=== PATIENT | male | born 1960 | race Caucasian/White ===

== ENCOUNTER → 2018-05-08 16:09 | Outpatient (CLI) | payer OTHER, SELFPAY ==
[2016-08-02 07:46] VITALS: BMI 36.9
== END ==
PROVIDERS: Family Provider Internal Medicine; PCP Internal Medicine; Referring Provider Otolaryngology; Visit Provider Otolaryngology
DX: J32.9 Chronic sinusitis, unspecified (principal)
CPT/HCPCS: 87070; 87077; 87205

== ENCOUNTER → 2018-05-13 17:28 | Outpatient (CLI) | payer OTHER, SELFPAY ==
--- NOTE | 2018-05-13 17:34 | CT_ITS ---
STUDY: CT MAXILLOFACIAL SINUSES REASON FOR EXAM: Male, 58 years old. SINUSITIS. RADIATION DOSAGE (If Supplied By Facility): CTDIvol = ( 33.06 ) mGy, DLP = ( 817.32 ) mGycm TECHNIQUE: The patient was scanned in a multi detector CT scanner. High resolution axial imaging was performed without the administration of intravenous contrast material. Sagittal and coronal images were reconstructed. Individualized dose optimization techniques were used for this CT. COMPARISON: None. FINDINGS: FRONTAL SINUSES: Normal aeration, without mucosal inflammatory disease. ETHMOIDAL SINUSES: Normal aeration, without mucosal inflammatory disease. MAXILLARY SINUSES: The right maxillary sinus is clear there is moderate mucosal thickening of the left maxillary sinus with obstruction of the outflow tract. The uncinate process is not well visualized. SPHENOIDAL SINUSES: There is a small mucous retention cyst There is patency of the right maxillary infundibuli with normal uncinate processes, ethmoid bullae, and hiatus semilunaris. Normal bilateral middle turbinates. Normal bilateral inferior turbinates. Normal midline nasal septum. There is patency of the bilateral nasal airways. The visualized osseous structures are normal. The visualized bilateral orbital contents are normal. CT/Sinus/Facial Bone IMPRESSION: Moderate chronic left maxillary sinusitis. Electronically Signed: Kyle Pfeiffer MD at 16:00 EST Tel , Service support ,
== END ==
PROVIDERS: Family Provider Internal Medicine; PCP Internal Medicine; Referring Provider Otolaryngology Otolaryngology/Facial Plastic Surgery; Visit Provider Otolaryngology Otolaryngology/Facial Plastic Surgery
DX: J32.9 Chronic sinusitis, unspecified (principal)
CPT/HCPCS: 70486

== ENCOUNTER 2018-06-13 07:46 | Day surgery (SDC) | payer OTHER, SELFPAY ==
[2018-06-13] VITALS (8 sets, daily range): BP systolic 126–162; BP diastolic 87–122; PULSE 60–74; RESP 14–20; TEMP 36.5–37.1; O2SAT 92–100; BMI 38.0
--- NOTE | 2018-06-13 09:27 | PCM.HP.STD ---
Problem List (1) Personal history of colonic polyps Status: Acute History of Present Illness Date of Admission: 06/13/18 The patient is a 58 year old M who has a personal history of colon polyps. His most recent colonoscopy however was 8-10 years ago. He denies bright red blood per rectum or melena. No abdominal pain. No unexpected weight loss. He otherwise states that his health is stable. Past Medical History Allergies No Known Allergies Allergy (Verified 06/13/18 08:01) Home Medications: Ambulatory Orders Medication Instructions Recorded Hydrochlorothiazide 25 mg PO DAILY 08/02/16 Cefdinir 300 mg PO BID 06/02/18 Smoking Status: Never smoker Tobacco Use: Non-smoker Review of Systems Constitutional: Denies: Anorexia HEENT: Denies: Difficulty Swallowing Cardiovascular: Denies: Chest Pain, Chest Pressure Respiratory: Denies: Cough Gastrointestinal: Denies: Abdominal Pain, Hematochezia, Melena Endocrine: Denies: Change in Body Habitus VTE Information - Inpt Only VTE Present on Admission: No Patient Problems: Active and Suspected Problems Personal history of colonic polyps (Acute) - Physical Exam General: Alert, Oriented x3, Cooperative, No apparent distress HEENT: Atraumatic Oral: Moist Mucosa Neck: Supple Lungs: Clear to auscultation Cardiovascular: Regular rate, Regular Rhythm Abdomen: Bowel Sounds Present, Soft, Non Tender, Non-Distended Psych/Mental Status: Normal Affect Vital Signs Temp Pulse Resp BP Pulse Ox 98.6 F 60 20 H 158/87 H 98 06/13/18 08:06 06/13/18 08:06 06/13/18 08:06 06/13/18 08:06 06/13/18 08:06 Oxygen Delivery Method Room Air Weight: 280 lb Body Mass Index (BMI) 38.0 Assessment/Plan All Active Problems Personal history of colonic polyps (Acute) I am recommending the patient a colonoscopy with possible biopsy or polypectomy as indicated. He is aware of the technique, benefits, risks and alternatives. No guarantees of success have been offered. He presents via our open access program. Based upon his past history likely want to stay recommending a 5-year follow-up colonoscopy. Yan Page M.D., F.A.C.S.
--- NOTE | 2018-06-13 09:54 | OP.ENDO_ITS ---
Patient Name: Jony Muñiz Procedure Date: 06/13/2018 9:24 AM Date of : 1960 Age: 58 Procedure: Colonoscopy Indications: High risk colon cancer surveillance: Personal history of colonic polyps Providers: Yan Page MD Referring MD: Yan Page MD Medicines: Midazolam 4 mg IV, Meperidine 100 mg IV Patient Profile: Last Colonoscopy: 8-10 years ago. Complications: No immediate complications. Procedure: Pre-Anesthesia Assessment: - Prior to the procedure, a History and Physical was performed, and patient medications and allergies were reviewed. The patient's tolerance of previous anesthesia was also reviewed. The risks and benefits of the procedure and the sedation options and risks were discussed with the patient. All questions were answered, and informed consent was obtained. Prior Anticoagulants: The patient has taken no previous anticoagulant or antiplatelet agents. ASA Grade Assessment: II - A patient with mild systemic disease. After reviewing the risks and benefits, the patient was deemed in satisfactory condition to undergo the procedure. After I obtained informed consent, the scope was passed under direct vision. Throughout the procedure, the patient's blood pressure, pulse, and oxygen saturations were monitored continuously. The adult colonoscope was introduced through the anus and advanced to the cecum, identified by appendiceal orifice and ileocecal valve. The colonoscopy was performed without difficulty. The patient tolerated the procedure well. The quality of the bowel preparation was adequate to identify polyps. The ileocecal valve and the appendiceal orifice were photographed. Moderate Sedation: Moderate (conscious) sedation was personally administered by the endoscopist. The following parameters were monitored: oxygen saturation, heart rate, blood pressure, and response to care. Total physician intraservice time was 15 minutes. Scope In: 9:34:46 AM Scope Withdrawal Time 0 hours 8 minutes 51 seconds Scope Out: 9:49:25 AM Total Procedure Duration Time 0 hours 14 minutes 39 seconds Findings: Hemorrhoids were found on perianal exam. Multiple diverticula were found in the sigmoid colon and descending colon. The exam was otherwise without abnormality. Impression: - Hemorrhoids found on perianal exam. - Diverticulosis in the sigmoid colon and in the descending colon. - The examination was otherwise normal. - No specimens collected. Recommendation: - Discharge patient to home. - Resume previous diet. - Continue present medications. - Repeat colonoscopy in 5 years for surveillance. Procedure Code(s): --- Professional --- 18365, Colonoscopy, flexible; diagnostic, including collection of specimen(s) by brushing or washing, when performed (separate procedure) 12094, 59, Moderate sedation services provided by the same physician or other qualified health manager [employer] performing the diagnostic or therapeutic service that the sedation supports, requiring the presence of an independent trained observer to assist in the monitoring of the patient's level of consciousness and physiological status; initial 15 minutes of intraservice time, patient age 5 years or older Diagnosis Code(s): --- Professional --- Z86.010, Personal history of colonic polyps K64.9, Unspecified hemorrhoids K57.30, Diverticulosis of large intestine without perforation or abscess without bleeding CPT copyright 2017 [employer]. All rights reserved. The codes documented in this report are preliminary and upon granite block paver review may be revised to meet current compliance requirements. Yan Page MD 06/13/2018 9:53:56 AM This report has been signed electronically. Number of Addenda: 0 Note Initiated On: 06/13/2018 9:24 AM
== END 2018-06-13 11:10 | disposition home or self-care (01) ==
LOC: EN 07:47 → AC 07:48
PROVIDERS: Family Provider Family Medicine; PCP Family Medicine; Referring Provider Surgery; Visit Provider Surgery
PROC: 0DJD8ZZ Inspection of Lower Intestinal Tract, Via Natural or Artificial Opening Endoscopic (ICD-10-PCS; CPT 45378; principal; 2018-06-13 08:55)
DX: K57.30 Diverticulosis of large intestine without perforation or abscess without bleeding (principal); K64.9 Unspecified hemorrhoids
CPT/HCPCS: 45380; 99152; 99153; J7120

== ENCOUNTER → 2018-06-26 16:09 | Outpatient (CLI) | payer OTHER, SELFPAY ==
[2018-06-13 08:06] VITALS: BMI 38.0
--- NOTE | 2018-06-26 16:24 | EKG12_ITS ---
Test Reason : PRE-OP Blood Pressure : / mmHG Vent. Rate : 066 BPM Atrial Rate : 066 BPM P-R Int : 150 ms QRS Dur : 088 ms QT Int : 396 ms P-R-T Axes : 049 -04 020 degrees QTc Int : 415 ms Normal sinus rhythm Increased R/S ratio in V1, consider early transition or posterior infarct or normal variant or lead misplacement Abnormal ECG When compared with ECG of 06-AUG-2014 10:24, No significant change was found Confirmed by DALLAS MG, JOSE ([id number]), scientific publications editor NICKY ADAMS ([id number]) on 06/27/2018 8:04:27 AM Referred By: Epi Betancourt Confirmed By:JOSE HAYNES MD
[2018-06-26 17:10] LABS: Hematocrit 42.5 % (40-54); Hemoglobin 14.1 g/dl (13.0-16.5); Mean Corp Hgb Conc 33.2 g/gl (32-36); Mean Corpuscular Hgb 29.9 pg (27.0-32.0); Mean Platelet Vol. 10.3 fl (6.2-12.0); Platelet Count 216 K/mm3 (150-450); RBC Distribution Width CV 13.3 % (11.6-14.6); RBC Distribution Width SD 43.1 fl (35.1-43.9); Red Blood Count 4.72 M/mm3 (4.6-6.2); White Blood Count 6.3 K/mm3 (4.4-11.0)
[2018-06-26 17:19] LABS: Scan Indicated on CBC? Y/N NO
[2018-06-26 17:33] LABS: Anion Gap 10 (5-15); BUN 18 mg/dL (7-18); BUN/Creat Ratio 15.4 RATIO (10-20); Calcium,Total 8.6 mg/dL (8.5-10.1); Chloride 102 mmol/L (98-107); Creatinine, Serum 1.17 mg/dL (0.70-1.30); EST Glomerular Filtration Rate 68 mL/min (>60); Est Glom Filt Rate - Afr Amer 83 mL/min (>60); Glucose 90 mg/dL (74-106); Potassium 3.6 mmol/L (3.5-5.1); Sodium Level 143 mmol/L (136-145)
== END ==
PROVIDERS: Family Provider Family Medicine; PCP Family Medicine; Referring Provider Otolaryngology; Visit Provider Otolaryngology
DX: Z01.818 Encounter for other preprocedural examination (principal)
CPT/HCPCS: 36415; 80048; 85027; 93005

== ENCOUNTER → 2018-06-30 15:17 | Outpatient (CLI) | payer OTHER, SELFPAY ==
[2018-06-13 08:06] VITALS: BMI 38.0
--- NOTE | 2018-06-30 | ETH_PTH ---
PATIENT: LASHELL GONSALES LOC: [facility] U#:[id number] AGE/SX: 65/M ROOM: RE06/30/[address]: Dr. Epi Betancourt MD : 1960 BED: DIS: SPEC #: [id number] RECD: 06/30/18 15:01 STATUS: YUNG AILEEN #: [id number] ARTIE: 06/30/18 00:[address]: Epi Betancourt DEPT: SURGICAL PATHOLOGY RECD BY: Elieser Urena ENTERED: 07/01/18 12:04 SP TYPE: ETH TISS OTHR DR: Dr. Ingrid Lewis MD Tissues: A - Ethmoid sinus, NOS B - Ethmoid sinus, NOS Procedures: Decalcification bone/plaque Surgery Specimen Level IV HEADER OPERATION: Septoplasty, left maxillary antrostomy, bilateral submucosal resection inferior turbinates PRE-OP DIAGNOSIS: Chronic maxillary sinusitis, deviated nasal septum TISSUE SUBMITTED: A - Left/right sinus contents, B - Septum MICROSCOPIC DIAGNOSIS A. Left sinus contents: Fragments of respiratory mucosa with chronic inflammation and bone. B. Septum: Fragments of bone and cartilage, clinically deviated nasal septum. PHAM:south 07/04/18 MICROSCOPIC DESCRIPTION Slides are reviewed. GROSS DESCRIPTION A - Received in fixative is one container labeled with the patient's name and designated left sinus contents. The specimen consists of multiple irregular fragments of soft tissue mixed with fragments of bone that in aggregate measure 3 x 2.5 x 0.3 cm. The entire specimen is submitted in one cassette after decalcification. B - Received in fixative is one container labeled with the patient's name and designated septum. The specimen consists of multiple fragments of cartilage and bone that in aggregate measure 3 x 2.5 x 0.3 cm. The entire specimen is submitted in one cassette after decalcification. / PHAM:south 07/01/18 TC:5 CPT: 15018 x2, 27668 x2
== END ==
PROVIDERS: Family Provider Family Medicine; PCP Family Medicine; Referring Provider Otolaryngology; Visit Provider Otolaryngology
DX: J32.0 Chronic maxillary sinusitis (principal); J34.2 Deviated nasal septum
CPT/HCPCS: 88305; 88311

== ENCOUNTER 2019-01-09 17:05 | Observation (INO) | payer OTHER, SELFPAY ==
[2018-06-13 08:06] VITALS: BMI 38.0
[2019-01-09] VITALS (7 sets, daily range): BP systolic 129–152; BP diastolic 88–106; PULSE 59–79; RESP 14–24; TEMP 36.8–36.9; O2SAT 94–98; BMI 40.2; BMI 39.3
--- NOTE | 2019-01-09 17:12 | EKG12_ITS ---
Test Reason : AM EKG Blood Pressure : / mmHG Vent. Rate : 059 BPM Atrial Rate : 059 BPM P-R Int : 154 ms QRS Dur : 094 ms QT Int : 414 ms P-R-T Axes : 045 -16 003 degrees QTc Int : 409 ms Sinus bradycardia Otherwise normal ECG When compared with ECG of 09-JAN-2019 17:08, MANUAL COMPARISON REQUIRED, DATA IS UNCONFIRMED Confirmed by CLARIBEL WINTERS ([id number]), index editor NICKY ADAMS ([id number]) on 01/20/2019 1:03:18 PM Referred By: Lam Noonan Confirmed By:CLARIBEL WINTERS
--- NOTE | 2019-01-09 17:14 | ED.DCSUM_ITS ---
History of Present Illness Chief Complaint: Chest Pain Informant: Patient Onset: Days Context: Gradual Onset Timing: Intermittent Current Severity: Moderate Maximum Severity: Moderate Narrative: The patient presents to the emergency department with intermittent chest pain and lightheadedness. He states for the past 3 days, he is been having the symptoms. He states if he walks a distance or exerts himself, he will get more tightness and will feel more short of breath. He states that he will get diaphoretic. He denies any history of coronary vascular disease, but does have significant family history. He denies any fevers or chills. He went to his primary care today. Due to his concerning history of exertional chest pain, he was sent in for further evaluation. The patient only takes a low-dose hydrochlorothiazide. He does not smoke. He is never had a stress test. Prior similar symptoms: No Recent Illness/Hospitalization: No Past Medical History - Allergies and Home Meds Allergies/Adverse Reactions: Allergies No Known Allergies Allergy (Verified 01/09/19 17:09) Prior records reviewed: Yes Past Medical History: - - HTN Surgical History: no surgical history Smoking Status: Never smoker - Family History Maternal Family History: Reports: Heart Disease Paternal Family History: Reports: Heart Disease Review of Systems General: Denies: Chills, Fever, Sweats Eyes: Denies: Visual changes - bilaterally, Diplopia ENT: Denies: Rhinorrhea, Sore throat Cardiovascular: Reports: Chest pain. Denies: Palpitations Respiratory: Denies: Dyspnea, Cough, Dyspnea on exertion Gastrointestinal: Reports: Nausea. Denies: Abdominal pain, Vomiting, Diarrhea, Melena, Hematochezia Genitourinary: Denies: Dysuria, Hematuria, Frequency Musculoskeletal: Denies: Back pain, Extremity Pain Skin: Denies: Rash, Wounds Neurological: Denies: Headache, Weakness, Numbness Physical Exam Vital Signs/Narrative: Vital Signs Temp Pulse Resp BP Pulse Ox 01/09/19 17:06 98.5 F 79 24 H 148/106 H 94 Inital Vital Signs reviewed: Yes General: Well nourished, Well developed, No Acute Distress Head: Normocephalic, Atraumatic Eyes: Perrl, EOMI ENT: Moist mucous membranes, No rhinorrhea Neck: Supple, Nontender Cardiovascular: Regular rate, Regular rhythm, No murmurs Respiratory: No distress, CTA bilaterally, Chest nontender Abdomen: Soft, Nontender, Nondistended, Normal bowel sounds Back: Nontender, Normal Inspection Extremities: Nontender, No edema Skin: Normal color, No rash Neurological: Alert, Oriented x3, Cranial nerves II-XII grossly intact, Normal Strength, Normal Sensation Psychological: Normal affect, Normal Mood Diagnostic/Tx/Re-eval Chest X-Ray - ED: 1 View, Read by ED Physician, Read by Radiologist, Normal, Heart, Lungs, Mediastinum, No Infiltrates Clinical Impression(s) from Imaging Studies Chest X-Ray 01/09/19 17:20 IMPRESSION: No acute thoracic pathology. Electronically Signed: Julio Alas, at 17:36 EDT Tel , Service support , Abnormal Lab Results 01/09/19 01/09/19 17:15 17:15 WBC 6.1 RBC 5.11 Hgb 15.1 Hct 45.7 MCV 89.4 MCH 29.5 MCHC 33.0 RDW Std Deviation 41.0 RDW Coeff of Denita 12.5 Plt Count 217 MPV 9.6 Immature Gran % (Auto) 0.300 Neut % (Auto) 59.6 Lymph % (Auto) 28.6 [place] % (Auto) 9.5 Eos % (Auto) 1.3 Baso % (Auto) 0.7 Absolute Neuts (auto) 3.6 Absolute Lymphs (auto) 1.74 Nucleated RBC % 0 Sodium 140 Potassium 3.6 Chloride 105 Carbon Dioxide 31.0 Anion Gap 4 L BUN 15 Creatinine 1.08 Estim Creat Clear Calc 82.83 Est GFR (MDRD) Af Amer 90 Est GFR (MDRD) Non-Af 75 BUN/Creatinine Ratio 13.9 Glucose 96 Calcium 8.9 Troponin I < 0.015 - Rhythm Strip Rhythm Strip: Sinus Rhythm Rate: 80 Ectopy: None - EKG Initial EKG Interpretation: Sinus Rhythm, No Acute Injury Pattern, - - Inferior Q waves. Prior: No Prior - Medical Decision Making The patient presents to the emergency department intermittent chest pain for the past 3 days. He does describe an exertional component. His EKG shows Q waves in the inferior leads. Do not have an old to compare to. The patient is pain- free. Screening labs including cardiac enzymes are normal. At this point, given his symptoms and strong family history I do feel that he would benefit from cardiac rule out. The patient was discussed with the hospitalist who agrees with plan of care. Impression 1. Chest pain ED Disposition - Plan for ED Patient: Disposition: Acute Care Hospital [facility]
[2019-01-09] MEDS: Aspirin 81 MG TAB.CHEW 324 MG PO (17:18)
--- NOTE | 2019-01-09 17:20 | RAD_ITS ---
STUDY: X-RAY CHEST REASON FOR EXAM: Male, 58 years old. Chest pain TECHNIQUE: Frontal view of the chest COMPARISON: None. FINDINGS: The lungs are clear. There are no pleural effusions. There is no pneumothorax. The heart is normal in size. The visualized osseous structures are within normal limits. RAD/Chest 1 View (Portable) IMPRESSION: No acute thoracic pathology. Electronically Signed: Julio Alas, at 17:36 EDT Tel , Service support ,
[2019-01-09 17:30] LABS: Absolute Lymphocyte Count 1.74 X10^3/uL (0.83-4.51); Absolute Neutrophil Count 3.6 X10^3/uL (2.0-7.7); Basophil# 0.04 X10^3/uL; Basophil% 0.7 % (0-1); Eosinophil# 0.08 X10^3/uL; Eosinophils% 1.3 % (0-5); Hematocrit 45.7 % (40-54); Hemoglobin 15.1 g/dL (13.0-16.5); Lymphocyte # 1.74 X10^3/ul (4.0); Lymphocyte % 28.6 % (19-41); Mean Corpuscular Hgb 29.5 pg (27.0-32.0); Mean Corpuscular Volume 89.4 fL (80-94); Mean Platelet Vol. 9.6 fl (6.2-12.0); Monocyte# 0.58 X10^3/uL; Monocyte% 9.5 % (0-10); NRBC Flagged by Analyzer 0 % (0-5); Neutrophil # 3.63 X10^3/uL (2.7-7.7); Neutrophil % 59.6 % (47-70); Platelet Count 217 K/mm3 (150-450); RBC Distribution Width CV 12.5 % (11.6-14.6); Red Blood Count 5.11 M/mm3 (4.6-6.2); White Blood Count 6.1 K/mm3 (4.4-11.0)
[2019-01-09 17:42] LABS: Anion Gap 4 (5-15); BUN 15 mg/dL (7-18); BUN/Creat Ratio 13.9 RATIO (10-20); Calcium,Total 8.9 mg/dL (8.5-10.1); Chloride 105 mmol/L (98-107); Creatinine, Serum 1.08 mg/dL (0.70-1.30); EST Glomerular Filtration Rate 75 mL/min (>60); Est Glom Filt Rate - Afr Amer 90 mL/min (>60); Estimated Creatinine Clearance 82.83 ml/min; Glucose 96 mg/dL (74-106); Potassium 3.6 mmol/L (3.5-5.1); Sodium Level 140 mmol/L (136-145)
--- NOTE | 2019-01-09 18:05 | NURSING ---
117 CP OBS LIBORIO
--- NOTE | 2019-01-09 18:42 | HP.PCM_ITS ---
Problem List (1) Chest pain Status: Acute Qualifiers: Chest pain type: unspecified Qualified Code(s): R07.9 - Chest pain, unspecified History of Present Illness Date of Admission: 01/09/19 Chief Complaint: chest pain The patient is a 58 year old M who was in his normal state of health up until the past few days where he has been having exertional right-sided chest pain. States that it goes away slowly after he stops doing the activity but not immediately. Is associated with shortness of breath, diaphoresis and dizziness. States that it did go up his arm one time but for the most part it does not radiate. Is never had any chest pain like this. Presented to the emergency room and his work-up there was unremarkable. The hospital service was contacted to evaluate patient for further chest pain. [] Past Medical History Medical History: Medical History (Last Updated 01/09/19 @ 18:44 by Lam Noonan DO) HTN (hypertension) I10 Allergies No Known Allergies Allergy (Verified 01/09/19 17:09) Home Medications: Ambulatory Orders Medication Instructions Recorded Hydrochlorothiazide [Hctz] 25 mg PO DAILY 01/09/19 Surgical History: Surgical History (Last Updated 01/09/19 @ 18:44 by Lam Noonan DO) H/O varicose vein stripping Z98.890 Surgical History: no surgical history Lives: Spouse/ Significant Other Smoking Status: Never smoker Tobacco Use: Non-smoker Alcohol: Rare Drugs: None - *Family History Maternal History Items: Heart Disease Paternal History Items: Heart Disease Review of Systems Constitutional: Denies: Chills, Fever, Weight Change Eyes: Denies: Blurred vision, Double vision HEENT: Denies: Head Aches, Sinus Congestion, Sinus Drainage Cardiovascular: Reports: Chest Pain, Edema - chronically, but has gotten worse more so in LLE Respiratory: Reports: Shortness of Breath. Denies: Cough Gastrointestinal: Denies: Abdominal Pain, Nausea, Vomiting Genitourinary: Denies: Dysuria Musculoskeletal: Denies: Joint Pain, Joint Tenderness Skin: Denies: Rash, Wounds Neurological: Denies: Numbness, Tingling, Focal weakness Psychiatric: Denies: Anxiety, Depression Hematologic/ Lymphatic: Denies: Easy Bruising, Easy Bleeding, Hx of blood clot Comment: A 10 point review of systems were negative except as mentioned in the history of present illness and the other review of systems. VTE Information - Inpt Only VTE Present on Admission: No VTE Mechan Device Prophylaxis: None VTE Pharm Prophylaxis ordered?: No Reason prophylaxis not ordered:: Procedure Not Indicated Patient Problems: Active and Suspected Problems Chest pain (Acute) - Physical Exam General: Alert, No apparent distress HEENT: Atraumatic, Normocephalic Oral: Moist Mucosa, No Gingival or Mucosal Lesions/ Ulcerations Neck: No Nodes, Thyroid Normal Size and Texture Lungs: Clear to auscultation, Normal air movement, No rhonchi, No wheeze, No rales Cardiovascular: Regular rate, Regular Rhythm, Normal S1, Normal S2, No murmurs Abdomen: Bowel Sounds Present, Soft, Non Tender, Non-Distended, No Hepato- splenomegaly Extremities: No Calf Tenderness, Edema - And lower extremities nonpitting Skin: No rashes, No breakdown Musculoskeletal: No Tenderness to Palpation of Joints or Extremities, No Muscle Wasting Neurological: Sensory exam intact to light touch and pain, - - no clonus Psych/Mental Status: Normal Affect, Appropriate Vital Signs Temp Pulse Resp BP Pulse Ox 36.8 C 59 L 18 148/96 H 97 01/09/19 18:28 01/09/19 18:28 01/09/19 18:28 01/09/19 18:28 01/09/19 18:28 Oxygen Flow Rate (L/min) 2 Oxygen Delivery Method Nasal Cannula Weight: 131.587 kg Body Mass Index (BMI) 39.3 Laboratory Tests Past 24 Hrs 01/09/19 01/09/19 17:15 17:15 WBC 6.1 RBC 5.11 Hgb 15.1 Hct 45.7 MCV 89.4 MCH 29.5 MCHC 33.0 RDW Std Deviation 41.0 RDW Coeff of Denita 12.5 Plt Count 217 MPV 9.6 Immature Gran % (Auto) 0.300 Neut % (Auto) 59.6 Lymph % (Auto) 28.6 [place] % (Auto) 9.5 Eos % (Auto) 1.3 Baso % (Auto) 0.7 Absolute Neuts (auto) 3.6 Absolute Lymphs (auto) 1.74 Nucleated RBC % 0 Sodium 140 Potassium 3.6 Chloride 105 Carbon Dioxide 31.0 Anion Gap 4 L BUN 15 Creatinine 1.08 Estim Creat Clear Calc 82.83 Est GFR (MDRD) Af Amer 90 Est GFR (MDRD) Non-Af 75 BUN/Creatinine Ratio 13.9 Glucose 96 Calcium 8.9 Troponin I < 0.015 EKG reviewed and showed no acute process Assessment/Plan All Active Problems Personal history of colonic polyps (Acute) Chest pain (Acute) 1. Chest pain * Atypical but is concerning for stable angina, atypical given that is right- sided. * JAME score of 1, heart score of 5 * Plan is for treadmill echocardiogram stress test in the morning * Cycle troponins * Continue aspirin which he received in the emergency room * Check lipid panel * We will check a d-dimer and if elevated for age, check a CT angiogram of the chest. 2. Hypertension * Slightly elevated at this time * Continue HCTZ 3. VTE prophylaxis: Low risk as patient is observation status. Code Visit OBSV E&M: 66515 Initial observation care L3
[2019-01-09 19:14] LABS: D-Dimer Quantitative (DVT/PE) 0.85 FEU/ug/m (0.27-0.49)
--- NOTE | 2019-01-09 19:52 | CT_ITS ---
STUDY: CTA CHEST REASON FOR EXAM: Male, 58 years old. Chest pain on right side RADIATION DOSAGE (If Supplied By Facility): CTDIvol = ( 16.22 ) mGy, DLP = ( 528.60 ) mGycm TECHNIQUE: The examination was performed with the intravenous administration of 100ML IV Isovue 370. Post-processing of the angiographic images was performed, with multiplanar reformation and 3D reconstruction. Individualized dose optimization techniques were used for this CT. COMPARISON: None. FINDINGS: There is no evidence of pulmonary embolus. There is no evidence of thoracic aortic aneurysm or dissection. The heart is normal in size. There is no pericardial effusion. There are no pulmonary infiltrates or pleural effusions. There is no pneumothorax. There is a hypodense nodule in the right lobe of the thyroid with adjacent calcifications. Images through the upper abdomen demonstrate a right renal cyst with calcifications. The visualized osseous structures are within normal limits. CT/CTA Chest W/WO Contrast IMPRESSION: No evidence of pulmonary embolus or other acute thoracic disease. Right thyroid nodule with adjacent calcifications. Calcified cyst in the right kidney. Electronically Signed: Julio Alas, at 21:22 EDT Tel , Service support ,
[2019-01-10] VITALS (7 sets, daily range): BP systolic 128–148; BP diastolic 73–92; PULSE 49–82; RESP 16–17; TEMP 36.5–36.6; O2SAT 93–96
--- NOTE | 2019-01-10 05:55 | STEWCON_ITS ---
Reason For Study: CHEST PAIN Stress Results Protocol: Andrew Protocol WITH DEFINITY Maximum Predicted HR: 163 bpm Target HR: 139 bpm % Maximum Predicted HR: 95 % DurationHeart Rate Stage (mm:ss) (bpm) BP Comment BASELINE 61 140/98 2CC DEFINITY STAGE 1 3:00 100 160/108 STAGE 2 3:00 122 190/102A LITTLE TIGHTNESS NOTED TO CHEST STAGE 3 3:00 155 202/98 2 CC DEFINITY, INCREASED SOB, CHEST TIGHTNESS RECOVERY 94 148/88 TIGHTNESS EASING UP Stress Duration: 9:00 mm:ss Maximum Stress HR: 155 bpm Baseline Echocardiogram Findings The estimated ejection fraction is 65 %. Stress Echo Wall motion Data Resting WM Intermediate WM Stress WM Resting Wall Motion Wall Motion Stress No regional wall motion No regional wall motion abnormalities noted. abnormalities noted. EKG Data The baseline ECG displays normal sinus rhythm. The patient exercised according to the regular Andrew protocol for a total duration of 9:00. The maximum heart rate attained was 153 beats per minute. This was 93% of maximum predicted heart rate. The patient exercised into stage 4 of the Andrew protocol. During stress, there were no ST or T wave changes noted to suggest ischemia. No clinical angina was noted. Interpretation Summary The estimated ejection fraction is 65 %. Normal, adequate, treadmill echocardiogram. Negative for ischemia by EKG and echocardiographic criteria. No anginal symptoms noted. Rare PVCs noted. Hypertensive blood pressure response to exercise. Average exercise capacity for age. Test terminated due to the attainment target heart rate dyspnea and chest discomfort. No overt wall motion abnormalities noted despite chest discomfort which resolved several minutes into recovery. Final LVEF is 75%. No complications. The study was technically difficult. Contrast injection was performed. Ordering Physician: Shaista^Lam^^^DO Referring Physician: Lam Noonan Performed By: Alex Venegas RCS
--- NOTE | 2019-01-10 05:55 | EKG12_ITS ---
Test Reason : CP Blood Pressure : / mmHG Vent. Rate : 067 BPM Atrial Rate : 067 BPM P-R Int : 154 ms QRS Dur : 088 ms QT Int : 384 ms P-R-T Axes : 040 -12 003 degrees QTc Int : 405 ms Normal sinus rhythm Normal ECG Confirmed by CLARIBEL WINTERS ([id number]), managing editor ELEANOR TRIPLETT ([id number]) on 01/12/2019 2:23:48 PM Referred By: Lam Noonan Confirmed By:CLARIBEL WINTERS
[2019-01-10 06:11] LABS: Cholesterol 162 mg/dL (200); High Density Lipoprotein 45 mg/dL; Triglycerides 90 mg/dL; Very Low Density Lipoprotein 18 mg/dL (5-40)
[2019-01-10] MEDS: Aspirin E.C. 81 MG Tablet PO (06:13)
[2019-01-10] MEDS: Acetaminophen 325 MG Tablet 650 MG PO (06:14)
[2019-01-10] MEDS: hydroCHLOROthiazide 25 MG Tablet PO (08:45)
--- NOTE | 2019-01-10 10:14 | VDLE_ITS ---
Reason For Study: elevated D-Dimer RIGHT LEFT GSV is normal. CFV is compressible, spontaneous, phasic, CFV is compressible, spontaneous, phasic, competent, and demonstrates normal competent and demonstrates normal augmentation. augmentation. FV is compressible, spontaneous, phasic, FV is compressible, spontaneous, phasic, competent and demonstrates normal competent and demonstrates normal augmentation. augmentation. POP V is compressible, spontaneous, phasic, POP V is compressible, spontaneous, phasic, competent and demonstrates normal competent and demonstrates normal augmentation. augmentation. T/P Trunk is compressible. T/P Trunk is compressible. PTV is compressible. PTV is compressible. LT PerV is compressible. RT PerV is compressible. GSV is occluded S/P EVLA. Procedure Varicose Veins are dilated and Exam performed portable in patient room. noncompressible. The exam was diagnostic. A preliminary report was called and/or faxed to Gene MATHIS. Interpretation Summary Deep veins of the lower extremities are bilaterally patent and compressible segmentally. There is no evidence of deep vein thrombosis on either side. Valvular competence appears intact within the proximal deep venous systems bilaterally. The right great saphenous vein appears patent and compressible segmentally. The left great saphenous vein is occluded, consistent with a prior endothermal ablation procedure. Acute superficial thrombophlebitis is noted involving superficial varicosities in the left lower extremity. Ordering Physician: Gene Camp Performed By: Latrell Waddell RVT
--- NOTE | 2019-01-10 11:34 | DCINST_ITS ---
- Discharge Diagnoses Current Active Problems: Current Active and Chronic Problems (Last Updated 01/09/19 @ 18:44 by Lam Noonan DO) Chest pain (Acute) You will use the following diet at home:: Cardiac Your food should be the consistency of: Regular Your liquids should be the consistency of: Regular/Thin Discharge Activity: Return to Normal Activity Allergies/Adverse Reactions: Allergies No Known Allergies Allergy (Verified 01/09/19 17:09) Medications to take at Discharge Hydrochlorothiazide [Hctz] 25 mg PO DAILY 01/09/19 Lisinopril 5 mg PO DAILY #30 tab 01/10/19 The following prescriptions were given: Lisinopril 5 mg PO DAILY #30 tab Transmission Status: Pending to [facility] #44 Primary Care Physician: Ingrid Lewis MD [Primary Care Provider] - Please follow up with your Primary Care Physician in: 1 week Test Results: Test results from this visit will be discussed in further detail at your follow- up appointment, if applicable. Please Follow Up With: Neo Donovan MD When: as previously directed Proposed Discharge Date: 01/10/19
--- NOTE | 2019-01-10 13:25 | PCM.DC.SUM ---
<Gene Camp - Last Filed: 01/10/19 13:25> Discharge Date and Diagnosis Date of Admission: 01/09/19 Date of Discharge: 01/10/19 - Primary Discharge Diagnosis Atypical chest pain - musculoskeletal Chronic venous stasis HTN Hospital Course and Treatment Imaging Results: DIAGNOSTICS: 01/10/19 05:55 Stress Test Echo W/Contrast [ECHO] AM (NON MEDS) Interpretation Summary The estimated ejection fraction is 65 %. Normal, adequate, treadmill echocardiogram. Negative for ischemia by EKG and echocardiographic criteria. No anginal symptoms noted. Rare PVCs noted. Hypertensive blood pressure response to exercise. Average exercise capacity for age. Test terminated due to the attainment target heart rate dyspnea and chest discomfort. No overt wall motion abnormalities noted despite chest discomfort which resolved several minutes into recovery. Final LVEF is 75%. No complications. The study was technically difficult. Contrast injection was performed. CT/CTA Chest W/WO Contrast IMPRESSION: No evidence of pulmonary embolus or other acute thoracic disease. Right thyroid nodule with adjacent calcifications. Calcified cyst in the right kidney. RAD/Chest 1 View (Portable) IMPRESSION: No acute thoracic pathology. Operations: None Procedures: Stress test, - - venous doppler Summary of Care Provided: Hospital course: The patient is a 58 year old M with pmhx of HTN and venous stasis/vericose veins for which he follows Dr. Donovan who presented to the ER with c/o chest pain. This was described as a right sided sharp pain that sometimes would radiate in his right neck, and was worse with exertion, and associated with dizziness/diaphoresis/ and SOB. He had somewhat elevated BP, negative troponin, negative CXR, and negative EKG. D dimer was elevated so a CTA was performed and was negative. He was admitted to the PCU on tele for CP workup. No events on tele. He had troponin x3 which were negative. Stress test the following day was negative. A venous duplex of the LE was negative for acute DVT, chronic changes due to known vascular issues and prior ablation. BP was poorly controlled and he was started on low dose lisinopril in addition to his home HCTZ. He needs to follow up with his PCP in 1 week, and needs to keep his prior appt with Dr. Donovan regarding his vascular issues. The patient was DCd home in stable condition. This patient was seen by Gene Camp PA-C under the supervision of Doctor Adele. [] - Physical Exam General: Alert, Oriented x3, Cooperative HEENT: Atraumatic, PERRLA, EOMI, Normocephalic Neck: Supple, No JVD, Negative Carotid Bruits Lungs: Clear to auscultation, Normal air movement Cardiovascular: Regular rate, No murmurs Abdomen: Bowel Sounds Present, Soft, Non Tender, Obese Extremities: Capillary Refill Less than 3 Seconds, Edema - mild LE edema, nonpitting, chronic venous stasis changes, severe varicose veins. Skin: No rashes, No breakdown Musculoskeletal: No Tenderness to Palpation of Joints or Extremities Neurological: Cranial nerves II-XII grossly intact Psych/Mental Status: Normal Affect, Appropriate, Alert and oriented to time, place, person, mood and affect Vital Signs Temp Pulse Resp BP Pulse Ox 97.7 F L 60 16 148/92 H 96 01/10/19 12:21 01/10/19 12:21 01/10/19 12:21 01/10/19 12:21 01/10/19 12:21 Oxygen Flow Rate (L/min) 2 Oxygen Delivery Method Room Air Weight: 290 lb 1.6 oz Body Mass Index (BMI) 39.3 Intake and Output for Last 24 Hours 01/08/19 01/09/19 01/10/19 23:59 23:59 23:59 Intake Total 200 / 200 120 / 120 Balance 200 / 200 120 / 120 Laboratory Tests Past 24 Hrs 01/09/19 01/09/19 01/09/19 17:15 17:15 17:15 WBC 6.1 RBC 5.11 Hgb 15.1 Hct 45.7 MCV 89.4 MCH 29.5 MCHC 33.0 RDW Std Deviation 41.0 RDW Coeff of Denita 12.5 Plt Count 217 MPV 9.6 Immature Gran % (Auto) 0.300 Neut % (Auto) 59.6 Lymph % (Auto) 28.6 Bureau % (Auto) 9.5 Eos % (Auto) 1.3 Baso % (Auto) 0.7 Absolute Neuts (auto) 3.6 Absolute Lymphs (auto) 1.74 Nucleated RBC % 0 D-Dimer Quant (PE/DVT) 0.85 H* Sodium 140 Potassium 3.6 Chloride 105 Carbon Dioxide 31.0 Anion Gap 4 L BUN 15 Creatinine 1.08 Estim Creat Clear Calc 82.83 Est GFR (MDRD) Af Amer 90 Est GFR (MDRD) Non-Af 75 BUN/Creatinine Ratio 13.9 Glucose 96 Calcium 8.9 Troponin I < 0.015 Triglycerides Cholesterol LDL Cholesterol VLDL Cholesterol HDL Cholesterol 01/09/19 01/09/19 01/10/19 20:28 22:47 05:35 WBC RBC Hgb Hct MCV MCH MCHC RDW Std Deviation RDW Coeff of Denita Plt Count MPV Immature Gran % (Auto) Neut % (Auto) Lymph % (Auto) Bureau % (Auto) Eos % (Auto) Baso % (Auto) Absolute Neuts (auto) Absolute Lymphs (auto) Nucleated RBC % D-Dimer Quant (PE/DVT) Sodium Potassium Chloride Carbon Dioxide Anion Gap BUN Creatinine Estim Creat Clear Calc Est GFR (MDRD) Af Amer Est GFR (MDRD) Non-Af BUN/Creatinine Ratio Glucose Calcium Troponin I < 0.015 < 0.015 Triglycerides 90 Cholesterol 162 LDL Cholesterol 99 VLDL Cholesterol 18 HDL Cholesterol 45 Discharge Diet: Low fat/ Low Cholesterol, 2000 mg Sodium Diet Discharge Activity: Return to Normal Activity Home Medications: Medications to take at Discharge Hydrochlorothiazide [Hctz] 25 mg PO DAILY 01/09/19 Lisinopril 5 mg PO DAILY #30 tab 01/10/19 Following Prescrptions Were Given to Patient: Lisinopril 5 mg PO DAILY #30 tab Transmission Status: Received by [facility] #44 Primary Care Physician: Ingrid Lewis MD [Primary Care Provider] - Please follow up with your Primary Care Physician in: 1 week Please Follow Up With: Neo Donovan MD When: as previously directed Please Follow Up With: Ingrid Lewis MD Disposition: Home Minutes spent on discharge:: 35 Patient Condition:: Stable Medical Necessity - Tobacco Use Smoking Status: Never smoker Tobacco Use: Non-smoker Meaningful Use Info Meaningful Use Diagnoses (Choose all that apply): None applicable <Brandon Angulo E - Last Filed: 01/10/19 13:45> Hospital Course and Treatment Imaging Results: 01/10/19 05:55 Stress Test Echo W/Contrast [ECHO] AM (NON MEDS) Summary of Care Provided: Hospitalist note: Discharge summary above reviewed and I agree with the above discharge plan. Patient admitted for chest pain for evaluation. His EKG revealed normal sinus rhythm without evidence of acute ischemic changes. Troponin was negative x3. Chest x-ray showed no acute findings. He was found to have elevated d-dimer for which CTA chest done showed no PE or dissection. Patient had a history of varicose veins and he has been following up with Dr. Donovan for laser treatment which was done for the left lower extremity and he supposed to go for the other extremity. Venous Doppler of the left leg showed no acute DVT. His blood pressure was borderline high. Patient has been only on HCTZ. He underwent stress echocardiogram that was normal and adequate and was negative for ischemia by EKG and echocardiographic criteria, ejection fraction was 65%. ACS ruled out. He was started on low-dose lisinopril and continued on HCTZ. Patient discharged home in a stable medical condition, discharged on lisinopril and HCTZ, recommended follow-up with PCP in 1 week. - Physical Exam General: Alert, Oriented x3, Cooperative, No apparent distress. HEENT: Atraumatic, PERRLA, EOMI. Neck: Supple, No JVD, Negative Carotid Bruits, Trachea Midline, Thyroid Normal. Lungs: Clear to auscultation, Normal air movement, No rhonchi, No wheeze, No rales. Cardiovascular: Regular rate, Regular Rhythm, Normal S1, Normal S2, PMI Normal. Abdomen: Bowel Sounds Present, Soft, Non Tender, Non-Distended, No Hepato-splenomegaly. Extremities: No clubbing, No cyanosis, No edema Skin: No rashes, No breakdown Neurological: Neuro grossly intact This note was generated with [employer] dictation software. It may contain incorrect words, spelling, and punctuation that were not noted in checking the note before signing. - Physical Exam Vital Signs Temp Pulse Resp BP Pulse Ox 97.7 F L 60 16 148/92 H 96 01/10/19 12:21 01/10/19 12:21 01/10/19 12:21 01/10/19 12:21 01/10/19 12:21 Oxygen Flow Rate (L/min) 2 Oxygen Delivery Method Room Air Weight: 290 lb 1.6 oz Body Mass Index (BMI) 39.3 Intake and Output for Last 24 Hours 01/08/19 01/09/19 01/10/19 23:59 23:59 23:59 Intake Total 200 / 200 120 / 120 Balance 200 / 200 120 / 120 Laboratory Tests Past 24 Hrs 01/09/19 01/09/19 01/09/19 17:15 17:15 17:15 WBC 6.1 RBC 5.11 Hgb 15.1 Hct 45.7 MCV 89.4 MCH 29.5 MCHC 33.0 RDW Std Deviation 41.0 RDW Coeff of Denita 12.5 Plt Count 217 MPV 9.6 Immature Gran % (Auto) 0.300 Neut % (Auto) 59.6 Lymph % (Auto) 28.6 Bureau % (Auto) 9.5 Eos % (Auto) 1.3 Baso % (Auto) 0.7 Absolute Neuts (auto) 3.6 Absolute Lymphs (auto) 1.74 Nucleated RBC % 0 D-Dimer Quant (PE/DVT) 0.85 H* Sodium 140 Potassium 3.6 Chloride 105 Carbon Dioxide 31.0 Anion Gap 4 L BUN 15 Creatinine 1.08 Estim Creat Clear Calc 82.83 Est GFR (MDRD) Af Amer 90 Est GFR (MDRD) Non-Af 75 BUN/Creatinine Ratio 13.9 Glucose 96 Calcium 8.9 Troponin I < 0.015 Triglycerides Cholesterol LDL Cholesterol VLDL Cholesterol HDL Cholesterol 01/09/19 01/09/19 01/10/19 20:28 22:47 05:35 WBC RBC Hgb Hct MCV MCH MCHC RDW Std Deviation RDW Coeff of Denita Plt Count MPV Immature Gran % (Auto) Neut % (Auto) Lymph % (Auto) Bureau % (Auto) Eos % (Auto) Baso % (Auto) Absolute Neuts (auto) Absolute Lymphs (auto) Nucleated RBC % D-Dimer Quant (PE/DVT) Sodium Potassium Chloride Carbon Dioxide Anion Gap BUN Creatinine Estim Creat Clear Calc Est GFR (MDRD) Af Amer Est GFR (MDRD) Non-Af BUN/Creatinine Ratio Glucose Calcium Troponin I < 0.015 < 0.015 Triglycerides 90 Cholesterol 162 LDL Cholesterol 99 VLDL Cholesterol 18 HDL Cholesterol 45 Disposition: Home Minutes spent on discharge:: 24 Patient Condition:: Stable Meaningful Use Info Meaningful Use Diagnoses (Choose all that apply): None applicable Code Visit OBSV E&M: 35563 Observation care discharge
== END 2019-01-10 11:34 | disposition home or self-care (01) ==
LOC: ED 17:31 → PCU 18:55
PROVIDERS: Emergency Provider Emergency Medicine; Family Provider Family Medicine; PCP Family Medicine; Visit Provider Hospitalist
DX: R07.89 Other chest pain (principal); R42 Dizziness and giddiness; I10 Essential (primary) hypertension; R06.02 Shortness of breath; Z79.899 Other long term (current) drug therapy; I87.8 Other specified disorders of veins
CPT/HCPCS: 36415; 71045; 71275; 80048; 80061; 84484; 85025; 85379; 93005; 93017; 93350; 93970; 99218; 99285; J7030; Q9957; Q9967; C8928; G0378

== ENCOUNTER → 2019-02-02 | Outpatient (CLI) | payer OTHER, SELFPAY ==
[2019-01-09 18:30] VITALS: BMI 39.3
--- NOTE | 2019-02-02 10:53 | US_ITS ---
STUDY: THYROID ULTRASOUND REASON FOR EXAM: Male, 58 years old. Nodule seen on CT. TECHNIQUE: Ultrasound evaluation of the thyroid was performed with real-time and static hamilton-scale imaging. COMPARISON: CTA of the chest, January 09, 2019. FINDINGS: RIGHT LOBE: The right lobe of the thyroid gland measures 5.4 x 2.6 x 3.2 cm. There is a homogeneous echotexture. There is a complex cyst measuring 2.9 x 2.6 x 2.4 cm. With an adjacent calcification measuring 1.1 x 1.2 x 0.8 cm. These correlate with the CT findings. LEFT LOBE: The left lobe of the thyroid gland measures 4.2 x 1.6 x 1.6 cm. There is a homogeneous echotexture. 0.4 x 0.3 x 0.2 cm hypoechoic nodule. In the lower pole there is a 0.6 x 0.7 x 0.4 cm hyperechoic mass with hypoechoic rim, which is taller than it is wide and demonstrates peripheral blood flow. ISTHMUS: The isthmus measures 0.5 cm. The regional lymph nodes are normal. US/Thyroid IMPRESSION: 1. Large septated cystic mass with associated calcification in the right thyroid. This correlates with the CT finding. 2. Hyperechoic mass in lower pole of the left thyroid which is taller than it is wide and this nodule is characterized as an ACR TIRADS category TR 4, moderately suspicious. Follow-up in one year recommended.. Electronically Signed: Sandro Feng DO at 20:35 EDT Tel [phone], Service support ,
== END | disposition home or self-care (01) ==
PROVIDERS: Family Provider Family Medicine; PCP Family Medicine; Referring Provider Family Medicine; Visit Provider Family Medicine
DX: E04.1 Nontoxic single thyroid nodule (principal)
CPT/HCPCS: 76536

== ENCOUNTER → 2019-06-22 | Outpatient (CLI) | payer OTHER, SELFPAY ==
[2019-01-09 18:30] VITALS: BMI 39.3
--- NOTE | 2019-06-22 17:20 | RAD_ITS ---
HISTORY: CHRONIC BACK PAIN x32 YRS, WORSE LATELY THAN NORMAL TECHNIQUE: Lumbar spine 5 views Number of images including paperwork: 5 COMPARISON: None FINDINGS: VERTEBRAE: No acute fracture. VERTEBRAL ALIGNMENT: No traumatic subluxation. DISKS AND JOINTS: Mild disc space narrowing at L5-S1. Degenerative changes of the lower thoracic spine. Facet arthropathy. Degenerative changes of the sacroiliac joints also noted. SOFT TISSUES: Unremarkable paraspinous soft tissues. Surgical tacks noted in the pelvis on the left. RAD/L/S Spine Min 4 Views IMPRESSION: 1. No acute osseous abnormality. 2. Lumbar spondylosis. at 0805 Reported and signed by: Lissa Valle MD Electronically Signed: Lissa Valle MD at 8:05 EST Tel , Service support ,
== END | disposition home or self-care (01) ==
LOC: RAD 17:04
PROVIDERS: PCP Family Medicine; Referring Provider Family Medicine; Visit Provider Family Medicine
DX: M54.5 Low back pain (principal)
CPT/HCPCS: 72110

== ENCOUNTER 2019-08-10 18:00 | Outpatient (RCR) | payer BC, SELFPAY ==
[2019-01-09 18:30] VITALS: BMI 39.3
--- NOTE | 2019-07-06 19:35 | HP.PTEVAL ---
Patient's Visit Information LASHELL GONSALES is a 59 year old M referred to Physical Therapy by Ingrid Lewis MD with a diagnosis of LUMBAR PAIN PAIN. Date of Evaluation: 07/06/19 Physical Therapist: Anthony Adames PT, Cert MDT, OCS - Visit Plan Frequency: 2x /Week Duration: 4 Weeks Plan: PT INTERVENTION DLS-ABD/BACK,POSTURAL EX'S,LE FLEXABLITY MODALTIES NEEDED - Subjective Findings: This 59 y/o female presents to physical therapy lumbar pain. Patient has lumbar pain for many years. Patient pain conts to get worse over past 3-[address] routine visit recommended PT. Patient stated pain symttrical lumbar occassional parathesai/tingling legs. Aggraveting factors standing 45 mins, bending,lifting,extended sitting. Alleviating factors rest advil. Seen chiropractor every 6 months. Patient pain affects sleeping. Coughing/sneezing -.Bowel/bladder -. Patient had x-rays DDD. Patient symptoms affects QOL ,job demands ,housework tasks. SOCAIL: . VOACTION: [employer] - Pain Bilateral Back Pain Intensity (Out of 10): 6 Pain Intensity Range: 10 Comment: worse - Objective POSTURE: mild foward posture. GAIT: reciprocal pattern. NEURO: denies parathesia/tingling ,reflexes L3-4,L4-5,L5-S1 2/3. PALAPATION: unremarkable. FLEXABLITY: hams mild tight. SYMMTRIES: align. MMT: quads/hams 4/5 ,hip flexion 4/5,ankle 4/5. LUMBAR ROM: flexion min loss,extension mod loss,side glides min loss. MUSCLUAR ENDURANCE: POOR - Special Tests L/S Slump test left side: Negative L/S Slump test right side: Negative L/S Left Straight Leg Raise: Negative L/S Right Straight Leg Raise: Negative Lumbar Standing: Flexion - Mechanical Response: No effect Lumbar Standing: Flexion - Symptoms During Testing: No effect Lumbar Standing: Flexion - Symptoms After Testing: No effect Lumbar Standing: Extension - Mechanical Response: No effect Lumbar Standing: Extension - Symptoms During Testing: Increases Lumbar Standing: Extension - Symptoms After Testing: Worse Lumbar Standing: Right Side Glides - Mechanical Response: No effect Lumbar Standing: Right Side [place] - Symptoms During Testing: No effect Lumbar Standing: Right Side [place] - Symptoms After Testing: No effect Lumbar Standing: Left Side [place] - Symptoms During Testing: No effect Lumbar Standing: Left Side [place] - Symptoms After Testing: No effect - Goals Goal 1:: Independant with HEP. Goal Time Frame: 4-6 Weeks Goal 2:: Patient to improve posture for job demnads Goal Time Frame: 4-6 Weeks Goal 3:: Patient to decrease lumbar pain by 50% or > to improve function. Goal Time Frame: 4-6 Weeks Goal 4:: Patient be d/c to prophalxis Goal Time Frame: 4-6 Weeks Goal 5:: Patient to improve lumbar ROM for function of recovery Goal Time Frame: 4-6 Weeks Goal 6:: Patient to improve bcak owestry score by 5 point or > to improve QOL Goal Time Frame: 4-6 Weeks - Rehabilitation Potential Physical Therapy Diagnosis: This patient has lumbar pain with DDD with pain with motion ,decrease core muscular strength impairs function with ADL'S and job demnads. Rehabilitation Potential: Good - Anticipated Interventions Patient/Client Instruction: Educate patient on: Condition, Plan of Care For the Purpose of:: To decrease pain, To increase ROM, To improve muscle performance and motor function, To improve ability to perform ADL's, To increase tolerance to activity/condition/position, To improve ability of physical actions for home/community/work/leisure, To improve health of tissue, To decrease soft tissue restriction, To increase flexibility/ROM, To improve ability to perform tasks related to life management Therapeutic Exercise to Include: Strength training, Body mechanics, Postural training, Flexibilty training, Dynamic Lumbar Stabilization For the Purpose of:: To decrease pain, To increase ROM, To improve muscle performance and motor function, To improve ability to perform ADL's, To increase tolerance to activity/condition/position, To improve ability of physical actions for home/community/work/leisure, To improve health of tissue, To decrease soft tissue restriction, To increase flexibility/ROM, To improve ability to perform tasks related to life management TENS: Yes IF ES: Yes Cryotherapy (ice pack, ice massage): Yes Thermo therapy (hot pack): Yes Ultrasound (thermal/non thermal): Yes For the Purpose of:: To decrease pain, To increase ROM, To improve nutrient delivery to tissue, To improve health of tissue, To decrease soft tissue restriction Thank you for the opportunity to evaluate your patient. For Medicare and Medicare O plans, please review the plan of care and approve it. It will need to be FAXED BACK to us at [phone] for Medicare purposes. For Medicare only, by signing this I certify the plan of care. Please let me know if there are questions or concerns regarding this plan of care. Physician Signature: Date:
--- NOTE | 2019-08-10 19:43 | HP.PTDCSUM ---
It has been my pleasure to treat LASHELL GONSALES referred by Ingrid Lewis MD, with the diagnosis of LUMBAR PAIN PAIN for a total of 9 visit(s). Discharge Date: 08/10/19 Please see the following information for a summary of their discharge status. Subjective: Hasnt seen . Patient overall pain is better Bilateral Back Pain Intensity (Out of 10): 3 % Improvement: 40 Objective/Function: POSTURE: mild foward posture. GAIT: NORMAL LILI. LUMBAR ROM: FLEXION WFL,EXTENSION MOD LOSS. MMT: QUADS/HAMS /HIP FLEXION,ANKLE 4/5. FLEXABLITY: HAMS MIN TIGHT Goal 1:: Independant with HEP. Goal Progress: Goal Met Goal 2:: Patient to improve posture for job demnads Goal Progress: Goal Met Goal 3:: Patient to decrease lumbar pain by 50% or > to improve function. Goal Progress: Goal Met Goal 4:: Patient be d/c to prophalxis Goal Progress: Goal Met Goal 5:: Patient to improve lumbar ROM for function of recovery Goal Progress: Goal Met Goal 6:: Patient to improve bcak owestry score by 5 point or > to improve QOL Goal Progress: Goal Met Plan: D/C TO HEP Discharge Comments: HEP If there are questions or concerns regarding this patient's physical therapy, please feel free to call me at [phone]. Thank you for the referral of this patient. Sincerely, Anthony Adames, PT, Cert MDT, OCS
== END 2019-08-10 19:00 | disposition home or self-care (01) ==
LOC: PT 18:00
PROVIDERS: PCP Family Medicine; Visit Provider Family Medicine
DX: M54.5 Low back pain (principal)
CPT/HCPCS: 97014; 97110; 97162; G0283

== ENCOUNTER → 2020-01-20 | Outpatient (CLI) | payer BC, SELFPAY ==
[2019-01-09 18:30] VITALS: BMI 39.3
--- NOTE | 2020-01-20 17:07 | US_ITS ---
STUDY: THYROID ULTRASOUND REASON FOR EXAM: Male, 59 years old. NODULE TECHNIQUE: Ultrasound evaluation of the thyroid was performed with real-time and static hamilton-scale imaging. COMPARISON: 02/02/2019 FINDINGS: RIGHT LOBE: The right lobe of the thyroid gland measures 4.8 x 3.6 x 3.4 cm. There is a heterogeneous echotexture. Stable complex cyst in the right thyroid lobe measuring 3.4 x 3.3 x 2.5 cm. Stable calcified right thyroid nodule measuring 10 x 10 x 8 mm. LEFT LOBE: The left lobe of the thyroid gland measures 4.0 x 1.6 x 1.3 cm. There is a heterogeneous echotexture. There are no demonstrated solid, cystic or complex lesions. ISTHMUS: The isthmus measures 5 mm . US/Thyroid IMPRESSION: Previously described left thyroid lobe nodule is no longer visible. Stable complex cyst and calcified nodule in the right thyroid lobe. Consider 12 month ultrasound follow-up. Electronically Signed: Reese Yang MD at 17:55 EDT Tel , Service support ,
== END | disposition home or self-care (01) ==
PROVIDERS: PCP Family Medicine; Referring Provider Family Medicine; Visit Provider Family Medicine
DX: E04.1 Nontoxic single thyroid nodule (principal)
CPT/HCPCS: 76536

== ENCOUNTER 2020-01-28 12:22 | Emergency (ER) | payer BC, SELFPAY ==
[2019-01-09 18:30] VITALS: BMI 39.3
[2020-01-28 12:23] VITALS: BP 132/92; PULSE 62; RESP 14; TEMP 37.1; O2SAT 96; BMI 39.2
--- NOTE | 2020-01-28 12:51 | VDLE_ITS ---
Reason For Study: Swelling Procedure LEFT Exam performed portable in ED. GSV is normal. A preliminary report was called and/or faxed CFV is compressible, spontaneous, phasic, to Isaías. competent, and demonstrates normal augmentation. FV is compressible, spontaneous, phasic, competent and demonstrates normal augmentation. POP V is compressible, spontaneous, phasic, competent and demonstrates normal augmentation. T/P Trunk is compressible. PTV is compressible. LT PerV is compressible. Interpretation Summary There is no evidence of left lower extremity deep vein thrombosis. Left great saphenous vein appears patent and compressible segmentally. Ordering Physician: Lam Metz Referring Physician: Ingrid Lewis Performed By: Jenny Villarreal RVT
--- NOTE | 2020-01-28 13:13 | ED.DCSUM_ITS ---
- ER Visit Summary Date of Service: 01/28/20 Chief Complaint: Left leg pain History of Present Illness: The patient is a 59 M who presents with left leg pain and swelling that has been getting worse over the past week. Patient noted some redness over the lateral aspect of the left leg as well. Patient states the pain is worse with weightbearing. Patient describes the pain as aching and burning. Patient denies any paresthesias or weakness. Patient has a history of vein surgery in his left leg. Patient denies any chest pain or shortness of breath. Patient has been wearing compression hose with no improvement. Physical Examination: Vital signs are stable. Patient is afebrile. Patient is in no acute distress. Heart was regular rate and rhythm. Lungs are clear and equal bilaterally. Abdomen is soft. Bowel sounds are normal. There is no tenderness. Cranial nerves II through XII are intact. There are no focal motor or sensory deficits noted. Musculoskeletal exam reveals mild calf tenderness on the left. There is some erythema over the lateral aspect of the left lower leg. There is mild warmth. There is no abscess formation. Pedal pulses are equal bilaterally. Sensation was intact light touch in all digits. Capillary refill was less than 2 seconds in all digits. There is some mild pain with dorsiflexion of the left ankle. Test Results: Venous duplex of the left lower extremity was obtained. There is no evidence of DVT. Emergency Department Course and Treatment: Patient was given a dose of Keflex here. Patient is given a prescription for Keflex. Patient was advised of his findings. Patient was instructed to keep his leg elevated. Patient was instructed to follow-up with his primary care physician in 5 to 7 days. Patient understood and was agreeable with the plan. All questions were answered. Disposition: Discharge home Impression: Cellulitis left leg This note was generated with [employer] dictation software. It may contain incorrect words, spelling, and punctuation that were not noted in review of the chart prior to signing ED Disposition - Plan for ED Patient: Disposition: Home or Assisted Living Diagnosis: Cellulitis of left leg Instructions: ED Cellulitis Prescriptions: Cephalexin [Keflex] 500 mg PO Q6 #40 cap Prescription Printed Referrals: Ingrid Lewis MD [Primary Care Provider] - 5-7 Days
[2020-01-28] MEDS: Cephalexin 500 MG Capsule PO (14:27)
== END 2020-01-28 14:28 | disposition home or self-care (01) ==
PROVIDERS: Emergency Provider Emergency Medicine; PCP Family Medicine
DX: L03.116 Cellulitis of left lower limb (principal); E66.9 Obesity, unspecified; I10 Essential (primary) hypertension; Z79.899 Other long term (current) drug therapy
CPT/HCPCS: 93971; 99283

== ENCOUNTER → 2020-11-08 13:36 | Outpatient (CLI) | payer BC, SELFPAY ==
--- NOTE | 2020-11-08 13:43 | EKG12_ITS ---
Test Reason : PRE-OP Blood Pressure : / mmHG Vent. Rate : 082 BPM Atrial Rate : 082 BPM P-R Int : 150 ms QRS Dur : 084 ms QT Int : 366 ms P-R-T Axes : 044 -14 001 degrees QTc Int : 427 ms Normal sinus rhythm Incomplete right bundle branch block Confirmed by DALLAS MG, JOSE ([id number]), international editorial producer NICKY ADAMS ([id number]) on 11/09/2020 8:35:28 AM Referred By: Neo Donovan Confirmed By:JOSE HAYNES MD
--- NOTE | 2020-11-08 13:56 | VDLE_ITS ---
Reason For Study: Pain, Swelling Procedure LEFT This is a venous duplex using B-mode, color CFV is compressible, spontaneous, phasic, flow and spectral Doppler. competent, and demonstrates normal Exam performed in department. augmentation. FV is compressible, spontaneous, phasic, competent and demonstrates normal augmentation. POP V is compressible, spontaneous, phasic, competent and demonstrates normal augmentation. T/P Trunk is compressible. PTV is compressible. LT PerV is compressible. SFJ is INCOMPETENT and measures 1.35 x 1.54 cm. ASV mid thigh is INCOMPETENT for greater than 0.5 seconds and measures 0.65 x 0.68 cm. Small segement of GSV from junction to prox thigh is INCOMPETENT for greater than 0.5 seconds and measures 1.07 x 1.19 cm. Large varicose vein noted coming off GSV prox thigh extending down into calf. Varicose vein at distal thigh is partially compressible with bright intraluminal echoes consistent with Chronic SVT. GSV prox thigh-mid calf previous EVLA. GSV distal calf is competent. INCOMPETENT skill training program coordinator noted 15 cm above medial mallelous. SSV at junction is INCOMPETENT for greater than 0.5 seconds and measures 0.45 x 0.45 cm. VL/Venous Duplex US, Unilateral Interpretation Summary Deep veins of the left lower extremity are patent and compressible segmentally. There is no evidence of left lower extremity deep vein thrombosis. Valvular competence appears intac t within the proximal deep venous system on the left . A short segment of the left great saphenous ve in from the sapheno- femoral junction to the proximal thigh is patent and incompetent, and gives ris e to a large varicose vein extending from the proximal thigh to the calf. The left great saphenous ve in has been ablated from the proximal thigh to the mid-calf. The left great saphenous vein in the d istal calf is patent and competent. The left sapheno-femoral junction is incompetent. The left small saphenous vein is patent and incompetent. An accessory saphenous vein in the left mid-thigh is in competent. An incompetent skill training program coordinator vein is noted in the left calf, located 15 centimeters p roximal to the left medial malleolus. Chronic venous changes are noted in a varicose vein located i n the distal thigh. Ordering Physician: Neo Donovan Referring Physician: Ingrid Lewis Performed By: Jenny Villarreal RVT
== END ==
PROVIDERS: PCP Family Medicine; Referring Provider Surgery; Visit Provider Surgery
DX: Z01.812 Encounter for preprocedural laboratory examination (principal); M79.89 Other specified soft tissue disorders; M79.606 Pain in leg, unspecified; Z86.72 Personal history of thrombophlebitis
CPT/HCPCS: 87635; 93005; 93971; C9803; U0005; U0003

== ENCOUNTER → 2020-11-09 16:05 | Outpatient (CLI) | payer BC, SELFPAY ==
[2020-11-09 17:30] LABS: Hematocrit 43.1 % (40-54); Hemoglobin 14.3 g/dL (13.0-16.5); Mean Corp Hgb Conc 33.2 g/dL (32-36); Mean Corpuscular Hgb 29.3 pg (27.0-32.0); Mean Corpuscular Volume 88.3 fL (80-94); Mean Platelet Vol. 9.8 fl (6.2-12.0); Platelet Count 224 K/mm3 (150-450); RBC Distribution Width CV 13.1 % (11.6-14.6); RBC Distribution Width SD 42.3 fl (35.1-43.9); Red Blood Count 4.88 M/mm3 (4.6-6.2); White Blood Count 5.9 K/mm3 (4.4-11.0)
[2020-11-09 18:10] LABS: Anion Gap 3 (5-15); BUN 18 mg/dL (7-18); BUN/Creat Ratio 16.8 RATIO (10-20); Calcium,Total 8.8 mg/dL (8.5-10.1); Chloride 105 mmol/L (98-107); Creatinine, Serum 1.07 mg/dL (0.70-1.30); EST Glomerular Filtration Rate 75 mL/min (>60); Est Glom Filt Rate - Afr Amer 91 mL/min (>60); Glucose 91 mg/dL (74-106); Potassium 3.5 mmol/L (3.5-5.1); Sodium Level 140 mmol/L (136-145)
== END ==
PROVIDERS: PCP Family Medicine; Visit Provider Surgery
DX: Z01.812 Encounter for preprocedural laboratory examination (principal)
CPT/HCPCS: 36415; 80048; 85027

== ENCOUNTER → 2021-02-13 07:57 | Outpatient (CLI) | payer BC, SELFPAY ==
--- NOTE | 2021-02-13 08:00 | VDLE_ITS ---
Reason For Study: Leg pain/swelling RIGHT LEFT CFV is compressible, spontaneous, phasic, CFV is compressible, spontaneous, phasic, competent and demonstrates normal competent, and demonstrates normal augmentation. augmentation. FV is compressible, spontaneous, phasic, FV is compressible, spontaneous, phasic, competent and demonstrates normal competent and demonstrates normal augmentation. augmentation. POP V is compressible, spontaneous, phasic, POP V is compressible, spontaneous, phasic, competent and demonstrates normal competent and demonstrates normal augmentation. augmentation. T/P Trunk is compressible. T/P Trunk is compressible. PTV is compressible. PTV is compressible. RT PerV is compressible. LT PerV is compressible. Acute deep vein thrombosis is noted in the GSV, ASV mid thigh and SSV are occluded s/p right GastrocV. EVLA. GSV and SSV previous EVLA. Thrombus filled varicose veins noted in the SFJ is INCOMPETENT and measures 1.15 x 1.12 knee-mid calf. Varicose veins are coming off cm. ASV mid thigh. ASV mid thigh is INCOMPETENT for greater than INCOMPETENT ordnance truck installation mechanic noted in 15 cm above 0.5 seconds and measures 0.45 x 0.48 cm. medial malleolus. Procedure This is a venous duplex using B-mode, color flow and spectral Doppler. Exam performed in department. A preliminary report was called and/or faxed to Donovan. VL/Venous Duplex US - Joshua Extrem Interpretation Summary Acute deep vein thrombosis is noted in the right gastrocnemius vein. The remain adolfo of the right lower extremity deep venous system is patent and compressible. Deep veins of th e left lower extremity are patent and compressible segmentally. There is no evidence of left lower extremity deep vein thrombosis. Valvular competence appears intact within the proximal deep ve nous systems bilaterally. The right great saphenous vein and small saphenous vein are occlud ed, consistent with a prior endothermal ablation procedure. The accessory saphenous vein in the right mid-thigh is incompetent. The left great sahenous vein, small saphenous vein, and accessory saphenous vein (mid- thigh) are occluded, consistent with a prior endothermal ablation procedure. An incompetent ordnance truck installation mechanic vein is noted in the left calf, located 15 centimeters proximal to t he left medial malleolus. Acute superficial thrombophlebitis is noted involving superficial va ricosities near the left knee and in the left mid-calf. Ordering Physician: Neo Donovan Referring Physician: Ingrid Lewis Performed By: Jenny Villarreal RVT
--- NOTE | 2021-02-13 14:21 | US_ITS ---
STUDY: THYROID ULTRASOUND REASON FOR EXAM: Male, 61 years old. THYROID NODULE TECHNIQUE: Ultrasound evaluation of the thyroid was performed with real-time and static hamilton-scale imaging. COMPARISON: 01.20.20 FINDINGS: RIGHT LOBE: The right lobe of the thyroid gland measures 5.9 x 3.7 cm. There is a homogeneous echotexture. There are nodules. Cystic nodule with septation and debris measuring 39 x 33 x 35 mm. The lesion is solid / cystic with regular margins and nick nodular doppler flow. This has enlarged. Solid noncalcified nodule measuring 13 x 10 mm. The lesion is solid with regular margins and nick nodular doppler flow. LEFT LOBE: The left lobe of the thyroid gland measures 4.2 x 1.6 cm. There is a homogeneous echotexture. There are nodules. This measures 4 x 4 mm (The lesion is solid with regular margins and nick nodular doppler flow. ) and a mid nodule measures 4 x 3 mm. The lesion is solid with regular margins and intra-nodular doppler flow. ISTHMUS: The isthmus measures 6 mm. The regional lymph nodes are normal. US/Thyroid IMPRESSION: The 39mm RIGHT nodules. TR1: Benign: No FNA The 13mm RIGHT nodules. This nodule is of uncertain composition due to calcification, hyperechoic or isoechoic, [id number], margins cannot be determined and contains microcalcifications. TI-RADS points: 4. TI-RADS category: TR4. This nodule is moderately suspicious. Recommend follow-up thyroid ultrasounds at 1, 2 and 4 years. There are left nodules. TR2: Not Suspicious: No FNA Electronically Signed: Tr Rudolph MD at 19:19 EDT , Service support ,
== END ==
PROVIDERS: PCP Family Medicine; Referring Provider Surgery; Visit Provider Surgery
DX: M79.89 Other specified soft tissue disorders (principal); E04.1 Nontoxic single thyroid nodule; M79.606 Pain in leg, unspecified
CPT/HCPCS: 76536; 93970

== ENCOUNTER → 2021-02-14 13:50 | Outpatient (CLI) | payer BC, SELFPAY | PROVIDERS: PCP Family Medicine; Referring Provider Family Medicine; Visit Provider Family Medicine | DX: Z00.01 Encounter for general adult medical examination with abnormal findings (principal); U07.1 COVID-19; Z12.5 Encounter for screening for malignant neoplasm of prostate | CPT/HCPCS: 36415; 84153; 86769; G0103 ==

== ENCOUNTER → 2021-04-05 09:50 | Outpatient (CLI) | payer BC, SELFPAY ==
--- NOTE | 2021-04-05 09:55 | VDLE_ITS ---
Reason For Study: CHRONIC VENOUS INS RIGHT LEFT CFV is compressible, spontaneous, phasic, CFV is compressible, spontaneous, phasic, competent and demonstrates normal competent, and demonstrates normal augmentation. augmentation. FV is compressible, spontaneous, phasic, FV is compressible, spontaneous, phasic, competent and demonstrates normal competent and demonstrates normal augmentation. augmentation. POP V is compressible, spontaneous, phasic, POP V is compressible, spontaneous, phasic, competent and demonstrates normal competent and demonstrates normal augmentation. augmentation. T/P Trunk is compressible. T/P Trunk is compressible. PTV is compressible. PTV is compressible. RT PerV is compressible. LT PerV is compressible. RT GSV is s/p ablation. LT GSV has been stripped per patient. RT GASTROC V are now compressible. LT ASV is dilated and partially compressible Procedure mid calf only. The remainder of the ASV and Exam performed in department. Varicose Veins are compressible. This is a venous duplex using B-mode, color flow and spectral Doppler. VL/Venous Duplex US - Joshua Extrem Interpretation Summary Deep veins of the lower extremities are bilaterally patent and compressible seg mentally. There is no evidence of deep vein thrombosis on either side. Valvular competence appears in tact within the proximal deep venous systems bilaterally. Great saphenous veins are absent bila terally. Acute superficial thrombophlebitis is noted in a segment of the left accessory saphen ous vein in the mid- calf. There appears to have been improvement and resolution of the acute superf icial thrombophlebitis involving superficial varicosities in the left mid-calf. Ordering Physician: Neo Donovan Referring Physician: KONRAD GONZALEZ Performed By: Norma Blank, RDCS, RVT
== END ==
PROVIDERS: PCP Family Medicine; Referring Provider Surgery; Visit Provider Surgery
DX: I82.812 Embolism and thrombosis of superficial veins of left lower extremity (principal); I82.401 Acute embolism and thrombosis of unspecified deep veins of right lower extremity; I83.10 Varicose veins of unspecified lower extremity with inflammation
CPT/HCPCS: 93970

== ENCOUNTER 2021-05-16 10:00 | Outpatient (CLI) | payer BC, SELFPAY ==
--- NOTE | 2021-05-16 10:08 | VDLE_ITS ---
Reason For Study: chronic venous insufficiency, Hx DVT RIGHT LEFT CFV is compressible, spontaneous, phasic, CFV is compressible, spontaneous, phasic, competent and demonstrates normal competent, and demonstrates normal augmentation. augmentation. FV is compressible, spontaneous, phasic, FV is compressible, spontaneous, phasic, competent and demonstrates normal competent and demonstrates normal augmentation. augmentation. POP V is compressible, spontaneous, phasic, POP V is compressible, spontaneous, phasic, competent and demonstrates normal competent and demonstrates normal augmentation. augmentation. T/P Trunk is compressible. T/P Trunk is compressible. PTV is compressible. PTV is compressible. RT PerV is compressible. LT PerV is compressible. Gastroc V is compressible. SFJ is competent and measures 1.42 cm. GSV and SSV are absent S/P EVLA. ASV mid calf is INCOMPETENT for greater than Winch Truck Operator V 10 cm proximal to the medial 0.5 seconds and measures .35 x .38 cm. malleolus is incompetent for greater than .5 Winch Truck Operator V 15 cm proximal to the medial seconds. malleolus is incompetent or greater than .5 SFJ is competent and measures 1.23 cm. seconds. ASV mid thigh is INCOMPETENT for greater GSV and SSV are absent S/P EVLA. ASV is than 0.5 seconds and measures .28 x .3 cm. noncompressible S/P EVLA. ASV mid calf is INCOMPETENT for greater than Varicose veins below the knee demonstrate 0.5 seconds and measures .51 x .51 cm. chronic vein wall thickening. Procedure This is a venous duplex using B-mode, color flow and spectral Doppler. Exam performed in department. The exam was diagnostic. VL/Venous Duplex US - Joshua Extrem Interpretation Summary Deep veins of the lower extremities are bilaterally patent and compressible seg mentally. There is no evidence of deep vein thrombosis on either side. Valvular competence appears in tact within the proximal deep venous systems bilaterally. Sapheno-femoral junctions are bilater ally competent . The great sahenous veins and small saphenous veins are absent bilaterally, consiste nt with a prior endothermal ablation procedure. Accessory saphenous veins in the right mid-thig h and mid-calf are incompetent. An incompetent area forester vein is noted in the right calf, located 10 centimeters proximal to the right medial malleolus. An accessory saphenous vein in the left lower extremity is occluded, consistent with a prior endothermal ablation procedure. An accessory saphenous vein in the left mid-calf is incompetent. An incompetent area forester vein is noted in the le ft calf, located 15 centimeters proximal to the left medial malleolus. Chronic venous changes are n oted involving varicose veins below the left knee. Ordering Physician: Neo Donovan Performed By: Latrell Waddell RVT
== END 2021-05-16 23:59 | disposition short-term general hospital (02) ==
PROVIDERS: PCP Family Medicine; Referring Provider Surgery; Visit Provider Surgery
DX: I87.2 Venous insufficiency (chronic) (peripheral) (principal); I80.00 Phlebitis and thrombophlebitis of superficial vessels of unspecified lower extremity; Z86.718 Personal history of other venous thrombosis and embolism
CPT/HCPCS: 93970

== ENCOUNTER → 2022-03-12 | Outpatient (CLI) | payer BC, SELFPAY ==
--- NOTE | 2022-03-12 16:49 | US_ITS ---
EXAM: US SOFT TISSUES HEAD AND NECK, THYROID CLINICAL INDICATION: NODULE TECHNIQUE: Rehman scale and color doppler imaging was performed of the thyroid gland. This report was created using [employer] report generation technology. COMPARISON: US Thyroid dated february 13 2021 FINDINGS: LEFT THYROID LOBE: Left lobe measures 4.6 x 1.5 x 1.3 cm. Stable small colloid cyst within the left lobe measuring less than 5 mm in diameter. Homogeneous echotexture with normal vascularity. RIGHT THYROID LOBE: Right thyroid lobe measures 5.7 x 3.8 x 3.8 cm. Stable 4 cm septated cystic mass of the lower pole of the right lobe. Stable 12 mm calcification. Echogenicity is otherwise unremarkable. ISTHMUS: Isthmus measures 4 mm in AP dimension. No thyroid nodules are present. US/Thyroid IMPRESSION: Stable thyroid ultrasound. Electronically Signed: Vin Valdes MD at 8:10 EST ,
== END | disposition home or self-care (01) ==
LOC: US 16:47
PROVIDERS: PCP Family Medicine; Referring Provider Family Medicine; Visit Provider Family Medicine
DX: E04.1 Nontoxic single thyroid nodule (principal)
CPT/HCPCS: 76536

== ENCOUNTER 2023-06-27 09:31 | Day surgery (SDC) | payer BC, SELFPAY ==
[2023-06-27] MEDS: Lactated Ringers 1,000 ML 15 ML IV (10:19)
--- OUTSIDE RECORDS SUMMARY | 2023-06-27 10:19 | XMS RPT_ITS | CCD ---
Author Name Unknown Address [address] [place] [address] Organization [facility] Care Team Providers Care Shipyard Supervisor Name Role Phone Vining, Nichole S Unavailable Unavailable Vining, Nichole S Unavailable Unavailable Vining, Nichole S Unavailable Unavailable Vining, Nichole S Unavailable Unavailable Vining, Nichole S Unavailable Unavailable Vining, Nichole S Unavailable Unavailable Vining, Nichole S Unavailable Unavailable Vining, Nichole S Unavailable Unavailable Vining, Nichole S Unavailable Unavailable Vining, Nichole S Unavailable Unavailable Vining, Nichole S Unavailable Unavailable Vining, Nichole S Unavailable Unavailable Vining, Nichole S Unavailable Unavailable Vining, Nichole S Unavailable Unavailable Vining, Nichole S Unavailable Unavailable Beata Jacome Unavailable Unavailable Beata Jacome Unavailable Unavailable Vining, Nichole S Unavailable Unavailable Vining, Nichole S Unavailable Unavailable Vining, Nichole S Unavailable Unavailable Vining, Nichole S Unavailable Unavailable Vining, Nichole S Unavailable Unavailable Vining, Nichole S Unavailable Unavailable Vining, Nichole S Unavailable Unavailable Vining, Nichole S Unavailable Unavailable BEATA JACOME MD. Unavailable Unavailable KONRAD GONZALEZ Primary Care Physician Medications Current Medications Medication Drug Class(es) Dates Sig (Normalized) Sig (Original) hydroCHLOROthiazide 25 mg oral tablet (1 source) Thiazide Diuretic Start: 2 hydroCHLOROthiazide 25 mg oral tablet Dose : 25 mg = 1 tab(s), Oral, qDay, 0 Refill(s) Start Date: 07/10/21 Status: Ordered lisinopril 5 mg oral tablet (1 source) Angiotensin Converting Enzyme Inhibitor Start: 2 lisinopril 5 mg oral tablet Dose : 5 mg = 1 tab(s), Oral, qDay, # 30 tab(s), 0 Refill(s) Start Date: 07/10/21 Status: Ordered Vital Signs Date Time Vital Sign Value Performing Clinician Eloina pino 07-10-2021 13:27-0500 Body height 185.4 cm JUAN CALVILLO MD [facility] 07-10-2021 13:27-0500 Body temperature 98.6 [degF] JUAN CALVILLO MD [facility] 07-10-2021 13:27-0500 Body weight 129.5 kg JUNA CALVILLO MD [facility] 07-10-2021 13:27-0500 Diastolic blood pressure 74 mm[Hg] JUAN CALVILLO MD [facility] 07-10-2021 13:27-0500 Heart rate 90 /min JUAN CALVILLO MD [facility] 07-10-2021 13:27-0500 Respiratory rate 20 /min JAUN CALVILLO MD [facility] 07-10-2021 13:27-0500 Systolic blood pressure 155 mm[Hg] JUAN CALVILLO MD [facility] Encounters Encounter Date Encounter Type Care Provider Facility Start: 07-10-2021 End: 07-10-2021 Emergency department patient visit JUAN CALVILLO MD [facility] Start: 02-28-2018 End: 03-01-2018 Patient encounter procedure Nichole Melendez Vining Facility:[facility] Start: 02-28-2018 Patient encounter procedure BEATA JACOME Facility:[id number] Start: 02-26-2018 End: 02-26-2018 Patient encounter procedure Nichole Zaidi Facility:[facility] Start: 01-21-2018 End: 01-22-2018 Patient encounter procedure Nichole Zaidi Facility:[facility] Start: 12-25-2017 End: 12-26-2017 Patient encounter procedure Beata Jacome Facility:[facility] Start: 11-07-2017 End: 11-08-2017 Patient encounter procedure Nichole Zaidi Facility:[facility] Start: 10-29-2017 End: 10-30-2017 Patient encounter procedure Nichole Melendez [place] Facility:[facility] Start: 10-25-2017 End: 10-26-2017 Patient encounter procedure Nichole Melendez [place] Facility:[facility] Start: 07-23-2017 End: 07-24-2017 Patient encounter procedure Nichole Melendez [place] Facility:[facility] Immunizations Immunization Date Immunization Notes Care Provider Fa gladis 07-10-2021 tetanus toxoid, redu maia diphtheria toxoid, and acellular pertussis vaccine, adsorbed; Translations: [Boostrix (Tdap)] JUAN CALVILLO MD [facility] Payers Date Payer Category Payer Private Health Insurance 1960 Unknown [id number] 2.16.84 [id number] 1960 Unknown [id number] 2.16.84 [id number] 1960 Unknown [id number] 2.16.84 [id number] 1960 Unknown [id number] 2.16.84 [id number] 1960 Unknown [id number] 2.16.84 [id number] 1960 Unknown [id number] 2.16.84 [id number] 1960 Unknown [id number] 2.16.84 [id number] 1960 Unknown [id number] 2.16.84 [id number] 1960 Unknown [id number] 2.16. [id number] 1960 Unknown [id number] 2.16. [id number] 1960 Unknown [id number] 2.16. [id number] Private Health Insurance [id number] Social History Date Type Detail Facility [facility] Sex Assigned At Male [facility] Hospital Discharge instructions 07-10-2021 Note Date & Type Note Facility 07-10-2021 Hospital Discharg e instructions Patient Education 07/10/2021 13:30:43 Laceration, Extremity: Suture, Staple, or Tape Extremity Laceration: Stitches, Onida, or Tape A laceration is a cut through the skin. If it is deep, it may require stitches or chito to close so it can heal. Minor cuts may be treated with surgical tape closures, or skin glue. X-rays may be done if something may have entered the skin through the cut. You may also need a tetanus shot if you are not up to date on this vaccine. Home care Follow the healthcare provider s instructions on how to care for the cut. Wash your hands with soap and warm water before and after caring for your wound. This is to help prevent infection. Keep the wound clean and dry. If a bandage was applied and it becomes wet or dirty, replace it. Otherwise, leave it in place for the first 24 hours, then change it once a day or as directed. If stitches or chito were used, clean the wound daily: oAfter removing the bandage, wash the area with soap and water. Use a wet cotton swab to loosen and remove any blood or crust that forms. oAfter cleaning, keep the wound clean and dry. Talk with your healthcare provider before putting any antibiotic ointment on the wound. Reapply the bandage. You may remove the bandage to shower as usual after the first 24 hours, but don't soak the area in water (no swimming) until the stitches or chito are removed. If surgical tape closures were used, keep the area clean and dry. If it becomes wet, blot it dry with a towel. Let the surgical tape fall off on its own. The healthcare provider may prescribe an antibiotic cream or ointment to prevent infection. He or she may also prescribe an antibiotic pill. Don't stop taking this medicine until you have finished it all or the provider tells you to stop. The provider may also prescribe medicine for pain. Follow the instructions for taking these medicines. Don't do activities that may reopen your wound. Follow-up care Follow up with your healthcare provider, or as advised. Most skin wounds heal within 10 days. But an infection may sometimes occur even with proper treatment. Check the wound daily for the signs of infection listed below. Stitches and chito should be removed within 7 to14 days. If surgical tape closures were used, you may remove them after 10 days if they have not fallen off by then. When to seek medical advice Call your healthcare provider right away if any of these occur: Wound bleeding not controlled by direct pressure Signs of infection, including increasing pain in the wound, increasing wound redness or swelling, or pus or bad odor coming from the wound Fever of 100.4 F (38 C) or higher, or as directed by your healthcare provider Stitches or chito come apart or fall out or surgical tape falls off before 7 days Wound edges reopen Wound changes colors Numbness occurs around the wound Decreased movement around the injured area [id number] [employer]. [address] [place] [address], [place] [address]. All rights reserved. This information is not intended as a substitute for professional medical care. Always follow your healthcare professional's instructions. Follow Up Care 07/10/2021 12:57:47 With:Soumya Weirton Address:Unknown When:Within 1 Week(s) Comments:Schedule an appointment for wound check and suture removal.Daily wound care with application of topical antibiotic ointment and dressing changes.Use Tylenol, Advil or Aleve for pain as needed.Watch for signs of infection.Return to the ED if symptoms worsen. [facility] Evaluation + Plan note Note Date & Type Note Facility Evaluation + Plan note No data available for this section [facility] Summary Purpose Family History No Family History Records FoundNo Family History Records Found Advance Directives No Advanced Directives Records FoundNo Advanced Directives Records Found Additional Source Comments (unrecognized sect ion and content) No Status Records FoundNo Status Records Found INFORMATION SOURCE (unrecogn ized section and content) DATE CREATED AUTHOR AUTHOR'S ORGANIZ ATION 04/13/2018 [facility] FOR RECORDS PERTAINING TO PATIENTS WHO ARE OR HAVE BEEN ENROLLED IN A CHEMICAL DEPENDENCY/SUBSTANCEABUSE PROGRAM, SOME INFORMATION MAY BE OMITTED. This clinical summary was aggregated from multiple sources. Caution should be exercised in using it in the provision of clinical care. This summary normalizes information from multiple sources, and as a consequence, information in this document may materially change the coding, format and clinical context of patient data. In addition, data may be omitted in some cases. CLINICAL DECISIONS SHOULD BE BASED ON THE PRIMARY CLINICAL RECORDS. [employer] provides no warranty or guarantee of the accuracy or completeness of information in this document.
[2023-06-27 10:20] VITALS: BP 141/87; PULSE 76; RESP 18; TEMP 36.4; O2SAT 96; BMI 38.0
--- NOTE | 2023-06-27 11:23 | H&P.OPEN ---
[facility] - General General Date of Service: 06/27/23 Chief Complaint: Surveillance colonoscopy HPI Narrative LASHELL GONSALES, is a 63 M who presents for surveillance colonoscopy given a history of a colonic polyp at his last colonoscopy in 2019. He confirms her preappointment questionnaire that he has not experienced any change in his bowel habits-and particularly denies any notice of blood. Lastly he confirms that her prep was completed successfully and that her output is now clear. [facility] Medical History (Updated 06/27/23 @ 11:[address] Alfredo Guan MD) Chest pain DVT (deep venous thrombosis) History of deviated nasal septum History of edema History of stress test HTN (hypertension) Leg cramps Loss of hearing Non-smoker Personal history of colonic polyps Thyroid disease Wears glasses Home Medications hydrochlorothiazide 25 mg tablet 25 mg PO DAILY 01/09/19 [History Last Taken 06/26/23] lisinopril 5 mg tablet 5 mg PO DAILY #30 tabs 01/10/19 [Rx Last Taken 06/26/23] Allergy/AdvReac Type Severity Reaction Status Date / Time No Known Allergies Allergy Verified 06/21/23 09:52 Surgical History (Updated 06/21/23 @ 10:00 by Tana Whiting) H/O varicose vein stripping History of laparoscopic cholecystectomy Hx of colonoscopy Hx of hernia repair Social History (Updated 05/24/23 @ 08:27 by Paola Bell) household members: spouse current occupational status: employed Smoking Status: Never smoker Past Medical/Surgical History Planned Operation Planned Operative Procedure/s: CSCOPE OA S.O.S: No Previous Hospitalizations/Surgeries HX Hospitalizations: No HX of Surgeries: GALLBLADDER HERNIA REPAIR COLONOSCOPY Any Problems With Anesthesia: No You/Your Family Experience Fever (Hyperthermia) With Anes: No Cholinesterase deficiency: No Cardiovascular Hx Chest Pain within Last 2 months: Yes Hx of Irregular Heartbeat and/or Afib: No Hx Heart Attack: No Hx Congestive Heart Failure: No Hx Rheumatic Fever: No Hx Hypertension: Yes (CONTROLLED WITH MED) Hx Internal Defibrillator: No Hx Pacemaker: No Hx Cardiac Catheterization: No Hx Cardiac Surgery/Stents/Etc.: No Hx Stress Test: No (.) Hx Pain in Legs when Walking/Leg Cramps: Yes (VARICOSE VEINS) Respiratory Chronic Cough: No HX of Shortness of Breath: No Hoarseness: No Hx Chronic Obstructive Pulmonary Disease (COPD): No Hx Asthma: No Hx Emphysema: No Hx Sleep Apnea: No CPAP: Yes BIPAP: No Hx Respiratory Tract Infection/Cold (presently): Yes (SINUS INFECTION/TREATED/RESOLVED) Do You Snore Loudly (louder than talking or can be heard): Yes Do You Often Feel Tired/ Fatigued/ Sleepy Dring Daytime?: No Has Anyone Observed You Stop Breathing During Sleep?: Yes Result (for STOP score): Positive Hx Smoking: No Smoking Status: Never smoker Gastrointestinal Hx Gastrointestinal Disorders: No Hx Gastrointestinal Bleed: No Hx Ulcer: No Hx Hiatal Hernia: No Difficulty Chewing/Swallowing: No Special diet followed at home: No Hx Unplanned Weight Loss of 20#: No HX Unplanned Weight Gain of 20#: No Neurological Hx Seizures: No HX Syncope/Blackout Spells/Unconsciousness: No Hx Transient Ischemic Attacks (TIA): No Hx Multiple Sclerosis: No Hx Parkinson's Disease: No Hx Head/Neck Injury: No Hx Headaches: Yes (OCC) Hx Back Injury/Pain: Yes (LOWER BACK PAIN OCC) Recent Onset of Speech Difficulty: No Restless Legs: Yes Does patient have nerve stimulator: No Blood Disorder Hx Leukemia: No Bleeding Tendencies: No Hx Deep Vein Thrombosis: No Hx High Cholesterol: Yes Blood Transmitted Disease: No Hx Hepatitis: No Hx Cirrhosis: No Hx Anemia: No Hx Blood Disorders: No Reproduction : No Is Patient Lactating: No Genitourinary Hx Renal Disease: No Hx Dialysis: No Musculoskeletal Hx Arthritis: Yes Hx Rheumatoid Arthritis: No Hx Gout: No Recent Onset of an Orthopedic Problem: No Endocrine Hx Diabetes: No Thyroid Disease: No Hx Steroid Therapy: No Psycho/Social Hx Substance Use: No Hx Alcohol Use: No Hx Anxiety: No Hx Depression: No Mental Illness: No Hx Dementia: No Miscellaneous Hx Cancer: No Recent Exposure to Contagious Disease: No Hx of C-Diff: No Any Loose Teeth: No Allergies No Known Allergies Allergy (Verified 06/21/23 09:52) Maternal: Heart Disease Paternal: Heart Disease Discharge Is Pt Admitted From a [facility], or a Nursing Home: No After D/C, Where Do you Plan to Go: Return Home From the [facility] History Number of Risk Factors: 2 Vital Signs Vital Signs Vital Signs: 06/27/23 10:20 06/27/23 10:20 Temperature 97.6 F L Temperature Source Temporal Pulse Rate 76 Respiratory Rate 18 Respiratory Pattern Normal Blood Pressure 141/87 H Blood Pressure Mean 105 Blood Pressure Source Monitor Blood Pressure Position Semi-Fowlers Blood Pressure Location Right Arm Pulse Ox 96 Oxygen Delivery Method Room Air Weight Weight: 280 lb Body Mass Index (BMI) 38.0 Physical Exam Const alert, oriented x3 and no apparent distress General Appearance: cooperative and comfortable Orientation / Consciousness: awake, oriented to person and oriented to place Resp normal respiratory effort GI GI Narrative: Nondistended, obese, soft, nontender to palpation Assessment & Plan Assessment/Plan (1) Personal history of colonic polyps: PLAN: Patient is a 63-year-old male who presents for surveillance colonoscopy after a colon polyp was found in his prior colonoscopy in 2019. Unfortunately I am unable to see whether patient had a adenomatous type polyp or something else. He denies any changes to his bowel habits. He also confirms that he completed a prep in anticipation of today's procedure. Will now proceed to the endoscopy suite for planned colonoscopy. (2) Encounter for screening for malignant neoplasm of colon: Surgery Risks - Colonoscopy Risks Include but are not Limited To: Risks include but are not limited to: Bleeding, perforation requiring further surgery, inability to complete colonoscopy requiring barium enema.
[2023-06-27 12:15] VITALS: BP 108/77; BP 141/87; PULSE 60; RESP 16; TEMP 36.1; O2SAT 92
--- NOTE | 2023-06-27 12:17 | OP.CCLET_ITS ---
06/27/2023 Ingrid Lewis [id number] [facility] [address] [address] Re : Colonoscopy procedure for Jony Muñiz Dear Dr. Lewis This procedure was performed on June. My impressions and recommendations are as follows: Impressions : - Preparation of the colon was fair. - Friability with contact bleeding in the proximal transverse colon and in the ascending colon. No specimens collected. - Diverticulosis in the sigmoid colon and in the transverse colon. No specimens collected. - Internal hemorrhoids. No specimens collected. - The examination was otherwise normal. Recommendations : - Discharge patient to home (via wheelchair). - High fiber diet today. - Continue present medications. - Repeat colonoscopy in 5 years for surveillance. - Telephone my office for study results in 1 week. My findings are described in the full procedure note, which is enclosed. If I can be of further assistance, please feel free to contact me at Doctor phone number(s): , Work: . Sincerely, Alfredo Guan MD 06/27/2023 12:17:19 PM This report has been signed electronically.
--- NOTE | 2023-06-27 12:17 | OP.COLON_ITS ---
Patient Name: Jony Muñiz Procedure Date: 06/27/2023 11:09 AM Date of : 1960 Age: 63 Procedure: Colonoscopy Indications: High risk colon cancer surveillance: Personal history of colonic polyps Providers: Alfredo Guan MD Referring MD: Alfredo Guan MD Medicines: See the Anesthesia note for documentation of the administered medications Patient Profile: Last Colonoscopy: 5 years ago. Complications: No immediate complications. Estimated blood loss: Minimal. Procedure: Pre-Anesthesia Assessment: - The heart rate, respiratory rate, oxygen saturations, blood pressure, adequacy of pulmonary ventilation, and response to care were monitored throughout the procedure. After I obtained informed consent, the scope was passed under direct vision. Throughout the procedure, the patient's blood pressure, pulse, and oxygen saturations were monitored continuously. The Colonoscope was introduced through the anus and advanced to the cecum, identified by the appendiceal orifice, ileocecal valve and palpation. The colonoscopy was somewhat difficult due to poor endoscopic visualization. Successful completion of the procedure was aided by lavage. The patient tolerated the procedure well. The quality of the bowel preparation was fair. Scope In: 11:31:10 AM Scope Withdrawal Time 0 hours 23 minutes 49 seconds Scope Out: 12:08:51 PM Total Procedure Duration Time 0 hours 37 minutes 41 seconds Findings: The perianal and digital rectal examinations were normal. A diffuse area of mildly friable mucosa with contact bleeding was found in the proximal transverse colon and in the ascending colon. No biopsies or other specimens were collected for this exam. Multiple small and large-mouthed diverticula were found in the sigmoid colon and transverse colon. No biopsies or other specimens were collected for this exam. Internal hemorrhoids were found during retroflexion. The hemorrhoids were Grade I (internal hemorrhoids that do not prolapse). No biopsies or other specimens were collected for this exam. The exam was otherwise without abnormality. Impression: - Preparation of the colon was fair. - Friability with contact bleeding in the proximal transverse colon and in the ascending colon. No specimens collected. - Diverticulosis in the sigmoid colon and in the transverse colon. No specimens collected. - Internal hemorrhoids. No specimens collected. - The examination was otherwise normal. Recommendation: - Discharge patient to home (via wheelchair). - High fiber diet today. - Continue present medications. - Repeat colonoscopy in 5 years for surveillance. - Telephone my office for study results in 1 week. Procedure Code(s): --- Professional --- G0105, Colorectal cancer screening; colonoscopy on individual at high risk Diagnosis Code(s): --- Professional --- Z86.010, Personal history of colonic polyps K64.0, First degree hemorrhoids K92.2, Gastrointestinal hemorrhage, unspecified K57.30, Diverticulosis of large intestine without perforation or abscess without bleeding CPT copyright 2021 [employer]. All rights reserved. The codes documented in this report are preliminary and upon vacuum forming machine operator review may be revised to meet current compliance requirements. Alfredo Guan MD 06/27/2023 12:17:19 PM This report has been signed electronically. Number of Addenda: 0 Note Initiated On: 06/27/2023 11:09 AM
[2023-06-27 12:20] VITALS: BP 116/84; BP 141/87; PULSE 64; RESP 16; O2SAT 94
[2023-06-27 12:25] VITALS: BP 121/78; BP 141/87; PULSE 65; RESP 16; O2SAT 93
[2023-06-27 12:33] VITALS: BP 114/91; BP 141/87; PULSE 65; RESP 16; TEMP 36.3; O2SAT 97
[2023-06-27 12:52] VITALS: BP 141/87
== END 2023-06-27 13:19 | disposition home or self-care (01) ==
LOC: EN 09:32 → AC 09:33
PROVIDERS: PCP Family Medicine; Referring Provider Surgery; Visit Provider Surgery
PROC: 0DJD8ZZ Inspection of Lower Intestinal Tract, Via Natural or Artificial Opening Endoscopic (ICD-10-PCS; CPT 45378; principal; 2023-06-27 11:10)
DX: Z12.11 Encounter for screening for malignant neoplasm of colon (principal); K92.2 Gastrointestinal hemorrhage, unspecified; K57.30 Diverticulosis of large intestine without perforation or abscess without bleeding; K64.0 First degree hemorrhoids; Z86.010 Personal history of colon polyps; I10 Essential (primary) hypertension; Z79.899 Other long term (current) drug therapy; Z87.19 Personal history of other diseases of the digestive system; Z90.49 Acquired absence of other specified parts of digestive tract
CPT/HCPCS: 45378; J7120; J2405

== ENCOUNTER → 2024-04-20 | Outpatient (CLI) | payer BC, SELFPAY ==
[2024-04-20 16:41] LABS: Absolute Lymphocyte Count 2.31 X10^3/uL (0.83-4.51); Absolute Neutrophil Count 3.1 X10^3/uL (2.0-7.7); Basophil# 0.04 X10^3/uL; Basophil% 0.7 % (0-1); Eosinophil# 0.07 X10^3/uL; Eosinophils% 1.1 % (0-5); Hematocrit 44.4 % (40-54); Hemoglobin 14.3 g/dL (13.0-16.5); Lymphocyte # 2.31 X10^3/ul (0.83-4.51); Lymphocyte % 37.9 % (19-41); Mean Corp Hgb Conc 32.2 g/dL (32-36); Mean Corpuscular Hgb 28.6 pg (27.0-32.0); Mean Corpuscular Volume 88.8 fL (80-94); Mean Platelet Vol. 9.9 fl (6.2-12.0); Monocyte# 0.61 X10^3/uL; NRBC Flagged by Analyzer 0 % (0-5); Neutrophil # 3.05 X10^3/uL (2.7-7.7); Platelet Count 226 K/mm3 (150-450); RBC Distribution Width CV 12.9 % (11.6-14.6); RBC Distribution Width SD 41.7 fl (35.1-43.9); White Blood Count 6.1 K/mm3 (4.4-11.0)
[2024-04-20 17:16] LABS: ALB/GLOB Ratio 0.9 RATIO (0.9-2.4); AST(SGOT) 24 U/L (15-37); Alanine Aminotransfer ALT/SGPT 35 U/L (16-61); Albumin, Serum 3.5 g/dL (3.2-5.0); Alkaline Phosphatase 75 U/L (45-117); Anion Gap 5 (5-15); BUN 16 mg/dL (7-18); BUN/Creat Ratio 15.2 RATIO (10-20); Calcium,Total 8.9 mg/dL (8.5-10.1); Chloride 104 mmol/L (98-107); Creatinine, Serum 1.05 mg/dL (0.70-1.30); EST Glomerular Filtration Rate 76 mL/min (>60); Est Glom Filt Rate - Afr Amer 92 mL/min (>60); Globulin 3.8 g/dL (2.2-4.2); Glucose 102 mg/dL (74-106); Potassium 3.7 mmol/L (3.5-5.1); Protein, Total 7.3 g/dL (6.4-8.2); Sodium Level 139 mmol/L (136-145); Troponin-I HS 7 pg/mL (3.0-78.0)
[2024-04-20 19:10] LABS: BNP,B-Type NATRIURETIC PEPTIDE 20.3 pg/mL (0-100)
== END | disposition home or self-care (01) ==
LOC: LAB 16:06
PROVIDERS: PCP Family Medicine; Referring Provider Nurse Practitioner Family; Visit Provider Nurse Practitioner Family
DX: R07.9 Chest pain, unspecified (principal)
CPT/HCPCS: 36415; 80053; 83880; 84484; 85025

== ENCOUNTER → 2024-05-13 | Outpatient (CLI) | payer BC, SELFPAY ==
--- NOTE | 2024-05-13 12:49 | ECHOCS_ITS ---
Reason For Study: SHORTNESS OF BREATH Procedure This was a 2D Doppler, Color Flow transthoracic echocardiogram. The study was technically difficult. Contrast injection was performed. Exam performed in department. Left Ventricle Normal LV size. The estimated ejection fraction is 60 %. No evidence for diastolic dysfunction. No regional wall motion abnormalities noted. Right Ventricle Normal RV size. Normal systolic function. Atria The left and right atria are normal. No doppler evidence for ASD. Mitral Valve There is no mitral valve stenosis. Trivial mitral valve insufficiency. Tricuspid Valve There is no tricuspid stenosis. Trivial tricuspid valve insufficiency. Pulmonary artery systolic pressure is 30 mmHg. Aortic Valve Trisinus/trileaflet aortic valve. There is no aortic stenosis. Trivial aortic valve insufficiency. Pulmonic Valve There is no pulmonic valvular stenosis. Trivial pulmonic valve insufficiency. Great Vessels Normal aortic root. Pericardium/Pleural No pericardial effusion. Medication 22 gauge I.V. with prn adaptor inserted into left arm. Diluted definity 3ml given slow IV push to enhance endocardial definition. MMode/2D Measurements & Calculations LVIDd: 5.6 cm IVSd: 1.2 cm LVOT diam: 2.1 cm LVIDs: 3.2 cm LVPWd: 1.3 cm RVDd: 4.8 cm FS: 43.5 % LVOT area: 3.6 cm2 asc Aorta Diam: 4.0 cm LAV(MOD-bp): 62.4 ml LVAd ap4: 41.5 cm2 LAV(MOD-bp) Indexed: 25.0 ml/m2 LVLd ap4: 9.1 cm LAV(MOD-sp2): 63.9 ml EDV(MOD-sp4): 153.6 ml LAV(MOD-sp4): 60.0 ml EDV(sp4-el): 159.6 ml LVAs ap4: 25.6 cm2 LVLs ap4: 7.6 cm ESV(MOD-sp4): 70.4 ml ESV(sp4-el): 73.2 ml EF(MOD-sp4): 54.2 % EF(sp4-el): 54.2 % LVAd ap2: 32.0 cm2 SV(MOD-sp4): 83.2 ml SV(MOD-sp2): 47.4 ml LVLd ap2: 8.8 cm SI(MOD-sp4): 33.3 ml/m2 SI(MOD-sp2): 19.0 ml/m2 EDV(MOD-sp2): 93.5 ml EDV(sp2-el): 98.9 ml LVAs ap2: 19.9 cm2 LVLs ap2: 7.2 cm ESV(MOD-sp2): 46.1 ml ESV(sp2-el): 46.6 ml EF(MOD-sp2): 50.7 % SV(sp4-el): 86.4 ml Ao sinus diam: 3.[address] Junction: 3.2 cm LA dimension(2D): 4.2 cm LA A4 area: 21.5 cm2 RA A4 area: 17.0 cm2 TAPSE: 2.2 cm Time Measurements MV dec time: 0.23 sec Doppler Measurements & Calculations MV E max george: 63.4 cm/sec Lat Peak E' George: 9.5 cm/sec Med Peak E' George: 7.4 cm/sec MV A max george: 85.2 cm/sec E/E' lat: 6.7 E/E' med: 8.5 MV E/A: 0.74 MV dec slope: 270.5 cm/sec2 Ao V2 max: 122.2 cm/sec LV V1 max: 102.7 cm/sec Ao max P.0 mmHg LV V1 max P.2 mmHg Ao V2 mean: 81.2 cm/sec LV V1 mean P.4 mmHg Ao mean P.0 mmHg LV V1 mean: 73.1 cm/sec Ao V2 VTI: 22.7 cm LV V1 VTI: 21.3 cm AV (velocity ratio): 0.94 SHAILESH(I,D): 3.4 cm2 SHAILESH(V,D): 3.0 cm2 SV(LVOT): 77.2 ml PA V2 max: 110.1 cm/sec TR max george: 257.8 cm/sec TR max P.6 mmHg ECHO/Echo Complete W/ Contrast Interpretation Summary The estimated ejection fraction is 60 %. No evidence for diastolic dysfunction. Trivial mitral valve insufficiency. Trivial aortic valve insufficiency. Ordering Physician: Gayle Godoy Referring Physician: Gayle Godoy Performed By: Mya Reilly RDCS
--- NOTE | 2024-05-15 16:15 | STRESSREP ---
Stress Test Report Date: [05/13/2024] Procedure: Exercise tolerance test Indications: Chest pain Consent: Per the patient Procedure: The patient exercised on a Andrew protocol for 6 minutes achieving a peak heart rate of 144 bpm (91% predicted maximal heart rate) with a peak blood pressure 160/88 mmHg and a peak MET capacity of approximately 7 MET's. The baseline ECG demonstrated normal sinus rhythm. The peak exercise ECG demonstrated no significant ischemic changes. [There were no cardiac dysrhythmias pretest, during exercise, or recovery]. The functional capacity was considered normal for age. Patient had del, aching chest pain in the left anterior chest at peak exercise. The examination was discontinued secondary to shortness of breath. Impression: 1. Technically adequate (percent predicted maximal heart rate greater than 85%) exercise tolerance test 2. Stress test is positive for exercise-induced chest pain. 3. Stress test test is negative for exercise-induced EKG changes of ischemia. 4. Functional capacity is normal for age This note was generated with [employer] software. It may contain incorrect words, spelling, and punctuation that were not noted in checking the note before signing.
== END | disposition home or self-care (01) ==
LOC: CVS 12:48
PROVIDERS: PCP Family Medicine; Referring Provider Nurse Practitioner Family; Visit Provider Nurse Practitioner Family
DX: R07.9 Chest pain, unspecified (principal); Z82.49 Family history of ischemic heart disease and other diseases of the circulatory system
CPT/HCPCS: 93017; 93306; Q9957; A4216; C8929